=== PATIENT | male | born 1945 | race Caucasian/White ===

== ENCOUNTER 2023-12-27 11:52 | Outpatient (REF) | payer MEDICARE, SELFPAY ==
--- NOTE | ~2023-12-27 | XR_ITS ---
EXAMINATION: BILATERAL KNEES CLINICAL INFORMATION: Bilateral knee pain without injury COMPARISON: None available. TECHNIQUE: 3 views each knee FINDINGS: Right: Tricompartmental degenerative changes are seen with severe narrowing of the patellofemoral compartment as well as the medial compartment. Osteophytes and sclerosis are present. A tiny joint effusion is present. Vascular calcifications are seen. No fractures or dislocations. Left: Tricompartmental degenerative changes are seen with severe narrowing of the patellofemoral compartment as well as the medial compartment. Lesser changes are seen in the lateral compartment. No effusion is present. Vascular calcifications are seen. No fractures or dislocations. XR/XR knee RT 3V IMPRESSION: Bilateral tricompartmental degenerative changes as described above.
--- NOTE | ~2023-12-27 | XR_ITS ---
EXAMINATION: BILATERAL KNEES CLINICAL INFORMATION: Bilateral knee pain without injury COMPARISON: None available. TECHNIQUE: 3 views each knee FINDINGS: Right: Tricompartmental degenerative changes are seen with severe narrowing of the patellofemoral compartment as well as the medial compartment. Osteophytes and sclerosis are present. A tiny joint effusion is present. Vascular calcifications are seen. No fractures or dislocations. Left: Tricompartmental degenerative changes are seen with severe narrowing of the patellofemoral compartment as well as the medial compartment. Lesser changes are seen in the lateral compartment. No effusion is present. Vascular calcifications are seen. No fractures or dislocations. XR/XR knee LT 3V IMPRESSION: Bilateral tricompartmental degenerative changes as described above.
[2023-12-27 13:43] LABS: Anion Gap 13 (12-20); Carbon Dioxide 24 mmol/L (22-29); Chloride 109 mmol/L (96-108); Potassium 5.4 mmol/L (3.3-5.1); Sodium 141 mmol/L (135-145)
== END 2023-12-27 11:53 | disposition home or self-care (01) ==
LOC: HO.XRAY 11:52
PROVIDERS: PCP Internal Medicine Medical Oncology; Visit Provider Internal Medicine Medical Oncology
DX: I12.9 Hypertensive chronic kidney disease with stage 1 through stage 4 chronic kidney disease, or unspecified chronic kidney disease (principal); N18.30 Chronic kidney disease, stage 3 unspecified; I49.1 Atrial premature depolarization; M25.561 Pain in right knee; M25.562 Pain in left knee
CPT/HCPCS: 36415; 73562; 80051

== ENCOUNTER 2024-01-23 09:58 | Outpatient (REF) | payer MEDICARE, SELFPAY ==
--- NOTE | ~2024-01-23 | XR_ITS ---
EXAMINATION: XR KNEE AP STANDING CLINICAL INFORMATION: Pain in the right knee COMPARISON: X-rays of the knees December 2023 TECHNIQUE: AP bilateral standing view of the knees was obtained. FINDINGS: Right knee limited AP upright: Genu varus. Medial compartment: Moderate to severe joint space narrowing marginal osteophytes indicative of moderate to severe osteoarthritis unchanged. Lateral compartment marginal osteophytes indicative of at least mild osteoarthritis. No change. Patellofemoral compartment cannot be assessed on AP projection. Arterial calcification noted. Left knee: Genu varus. Medial compartment: Moderate to severe joint space narrowing indicative of mild osteoarthritis unchanged. Lateral compartment small marginal osteophytes without joint space narrowing indicative of mild osteoarthritis. Cannot assess patellofemoral compartment on this AP projection. Surrounding bone and soft tissues unremarkable. XR/XR knee standing BI IMPRESSION: RIGHT KNEE: Advanced osteoarthritis unchanged. LEFT KNEE: Advanced osteoarthritis unchanged..
== END 2024-01-23 09:59 | disposition home or self-care (01) ==
LOC: HO.HOSX 09:58
PROVIDERS: Visit Provider Physician Assistant
DX: M17.0 Bilateral primary osteoarthritis of knee (principal)
CPT/HCPCS: 73565; 99202

== ENCOUNTER 2024-01-23 14:25 | Outpatient (AMB) | payer MEDICARE, SELFPAY ==
--- NOTE | 2024-01-23 14:34 | MHC.OFFVIS ---
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 Patient reports that his right knee is worse than the left knee. He expresses that his pain is worse on both knees. Patient has off and on pain for a couple years. Patient tried and failed 3 + months of Ibuprofen. Pain is worse when he is sleeping but the pain is only on the left knee, standing for a long time for both knees. 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 ? ? While in the office today, the patient reports his right knee is worse than his left knee but confirms pain bilaterally. He states this pain has been intermittent for a couple of years. He reports an increase in pain within the left knee when sleeping. However, he has an increase in pain bilaterally with long periods of standing. He confirms trial and failure of over three months of ibuprofen. ? [facility] Social History (Updated 01/23/24 @ 14:41 by Anna Day) Alcohol intake: never Patient Tobacco Use Status: Never used Tobacco Review of Systems Const All systems reviewed & are unremarkable except as noted in HPI and below Physical Exam Const General: cooperative and no acute distress Orientation/consciousness: patient oriented x3 Resp Effort & Inspection: normal respiratory effort and able to speak in complete sentences Cardio Peripheral pulses: Peripheral pulses 2+ throughout Skin General skin exam: no rashes or lesions noted Neuro General: patient oriented x3 Extrem Other: Bilateral knees: Normal to inspection. No ecchymosis, erythema, or joint effusion. No tenderness to palpation along the medial or lateral joint lines. Full knee extension and flexion. Creptius felt with ROM. NVI.? Assessment & Plan Assessment & Plan (1) Osteoarthritis of right knee: Code(s): M17.11 - Unilateral primary osteoarthritis, right knee Category: Medical (2) Osteoarthritis of left knee: Code(s): M17.12 - Unilateral primary osteoarthritis, left knee Category: Medical Plan Mr. Eckert is a 78-year-old male who presents in the office today, as a new patient, for an evaluation of bilateral knee pain. ? ? While in the office today, the patient reports his right knee is worse than his left knee but confirms pain bilaterally. He states this pain has been intermittent for a couple of years. He reports an increase in pain within the left knee when sleeping. However, he has an increase in pain bilaterally with long periods of standing. He confirms trial and failure of over three months of ibuprofen.? ? We discussed the roles of cortisone injections, gel injections, and surgical intervention. He has elected to deferral all options at this time. He will continue to take OTC ibuprofen or Tylenol as needed for pain. He will contact the office should he wish to follow-up at a later time. Follow-up will be PRN, or sooner if needed. ? ? X-rays of the bilateral knees which were obtained while in the office today and were reviewed by me, Christina Georges PA-C, revealed bilateral knee osteoarthrtis. ? ? X-rays of the bilateral knees, obtained on 12/27/2023, revealed: Right: Tricompartmental degenerative changes are seen with severe? narrowing of the patellofemoral compartment as well as the medial? compartment. Osteophytes and sclerosis are present. A tiny joint? effusion is present. Vascular calcifications are seen. No fractures or? dislocations.? Left: Tricompartmental degenerative changes are seen with severe? narrowing of the patellofemoral compartment as well as the medial? compartment. Lesser changes are seen in the lateral compartment. No? effusion is present. Vascular calcifications are seen. No fractures or? dislocations.? Orders: Orders XR knee standing BI 01/23/24 M25.561 - Pain in right knee, M25.562 - Pain in left knee Patient Instructions: Scribed by Juanita Saucedo, biomedical manager, for Christina Georges PA-C on 01/23/2024 at 2:32 pm, EST.? Coding Level of Care Code New Pt Level 4 (91337) Diagnoses Osteoarthritis of right knee M17.11 Osteoarthritis of left knee M17.12
== END 2024-01-23 15:02 | disposition home or self-care (01) ==
PROVIDERS: PCP Internal Medicine Medical Oncology; Visit Provider Physician Assistant
DX: M17.0 Bilateral primary osteoarthritis of knee (principal)
CPT/HCPCS: 99203

== ENCOUNTER 2025-05-13 16:59 | Outpatient (REF) | payer MEDICARE, SELFPAY ==
--- OUTSIDE RECORDS SUMMARY | 2018-09-04 03:00 | XMS_ITS | Continuity of Care Document ---
Author Organization [facility], [place] Address [address] [place] [phone] Phone Care Team Providers Care Distribution Engineering Technologist Name Role Phone Freddy OD, Rupert Unavailable Unavailable Allergies, Adverse Reactions, Alerts Substance Reaction Status Criticality No Known Allergies Active No Inform ation Medications Medication Instructions Dosage Effective Dates (start - stop) Status Comments latanoprost 0.005 % eye drops Instill 1 drop Q HS OU - Active dorzolamide 22.3 mg-timolol 6.8 mg/mL eye drops Instill 1 drop BID OU - Active tamsulosin 0.4 mg capsule take 1 capsule by oral route every day 1/2 hour following the same meal each day 0.4 MG - Active anagrelide 1 mg capsule take 1 capsule by oral route 2 times every day 1 MG - Active lisinopril 20 mg tablet take 1 tablet by oral route every day 20 MG - Active SIMVASTATIN (unknown strength) take 1 tablet by oral route every day in the evening Not Available - Active Actos 30 mg tablet take 1 tablet by oral route every day 30 MG - Active glyburide 2.5 mg tablet take 2 tablet by oral route 2 times every day before breakfast 5 MG - Active metformin 500 mg tablet take 1 tablet by oral route 2 times every day with morning and evening meals 500 MG - Active Procedures Procedure Date Prepay Extended Ophthalmoscopy [facility] (Screening/Wellness) 2018 EYE EXAM, NEW PATIENT Advance Directives Directive Yes / No Effective Date File Name No Information Encounters Encounter Description Practice Location Reason(s) For Visit Diagnoses Date Provider Providers Copied on Encounter [facility], [facility], [address], [place], [id number] , tel: [phone] [facility] white flashing lights (chief complaint) Notes (chief complaint) Other vitreous opacities, right eyeVitreous degeneration, right eyePresence of intraocular lensType 2 diabetes mellitus without complicationsPrimary open-angle glaucoma, bilateral, indeterminate stageLong term (current) use of oral hypoglycemic drugs 9 Freddy Garcian. [address] [place] [address], [id number] , . tel: [phone] Family History Family Member Type Diagnosis Age At Onset Paternal grandfather Problem (finding) hypertension Problem (finding) No family hist ory of Macular degeneration Problem (finding) No family hist ory of Diabetes mellitus Brother Problem (finding) glaucoma Brother Problem (finding) cataract Payers Payer name Insurance type Covered republican ID Authoriza tion(s) No Information Social History Type Description Quantity Date Captured Comments Alcohol Use Details Unknown Caffeine Use Details Unknown Tobacco Use Status Current non-smoker 19 Smoking Status Never smoker Non-Smoking Tobacco Use Details : No Details Available : No Details Available Sex Male Chief Complaint And Reason For Visit From encounter dated '09/04/2018 08:00'. white flashing lights (chief complaint). Description: The 73 Year old male presents for white flashing lights in the right eye. The onset was during the night. The symptom is frequent, about every 10-20 seconds. In addition, the condition is associated with one new floater this am. The patient denies loss of side vision. Notes (chief complaint). Description: [place] is visiting from [place]. Has history of Cataract Extraction OUabout 6 years ago. Is being treated for Glaucoma OU. Has Type 2 DM. Reason For Referral Reason For Referral No Information History Of Present Illness Encounter Date Complaint History Of Prese nt Illness Notes Pt is visiting david murphy [place]. Has history of Cataract Extraction OU about 6 years ago. Is being treated for Glaucoma OU. Has Type 2 DM. white flashing lights The 73 Yea r old male presents for white flashing lights in the right eye. The onset was during the night. The symptom is frequent, about every 10-20 seconds. In addition, the condition is associated with one new floater this am. The patient denies loss of side vision. Functional Status Date Functional Assessmen t No Information Instructions Date Instruction Additional Infor bela Impression/Plan Assessments Type Assessment Date assessment Other vitreous opacities, right eye assessment Vitreous degeneration, right eye assessment Presence of intraocular lens Aug assessment Type 2 diabetes mellitus without complications assessment Primary open-angle glaucoma, rupinder ateral, indeterminate stage assessment USP (current) use of oral hypoglycemic drugs Patient Care Teams Name Effective Dates (start - stop) Status Members No Information
--- OUTSIDE RECORDS SUMMARY | 2024-04-14 09:30 | XMS_ITS ---
Author Organization [facility] Address [address] [place] [address] Care Team Providers Care Vocational Rehab Consultant Name Role Phone Talib HERNANDEZ, Marcelino Primary Care Provider Unavailab Sejal Lipscomb Unavailable [phone] Mendez Blanchard [phone] Encounters Encounter Location Date Provider Diagnosis [address] [address] 04/14/2024 Mendez Blanchard Plan Of Treatment Next Appt Details Provider Name:Sejal Gil pacheco, 10/12/2025 11:00:00 AM, [address] [place] [address], [phone], Progress Notes * Tate ADAMS DDOB: [birth year] (79 yo M)Acc No.[id number]:04/14/2024 Progress Note Patient: Sherron MELINDACARLEYTate Provider: Monique Olivo DPM :1945 A ge:78 Y S ex:Male Date:04/14/2024 Address:[address] [place] [address] Pcp:Marcelino Mayers MD Subjective: * Chief Complaints: * * Medical History: Objective: * Vitals: Assessment: Plan: * Treatment: * Images: * The named appointment provid er may or may not be the originator of this progress note, and it is not deemed complete until electronically signed by the appointment provider. Sign off status: Pending * Provider: Monique Olivo DPM Date: 1 Generated for James sosa/Martin/Ascencion on: 07/13/2024 07:12 PM EST
--- OUTSIDE RECORDS SUMMARY | 2024-08-22 04:45 | XMS_ITS ---
Author Organization Marcelino Mayers III, MD Address [address] [place] [address] [place] [address] Care Team Providers Care Office Equipment Technician Name Role Phone Dr. Marcelino Mayers III Primary Care Provider Medications Medication SIG (Take, Route, Fr equency, Duration) Notes Start Date End Date Status Simvastatin 80 MG 1 tablet in the even ing Orally Once a day for 90 days 08/22/2024 Active Social History Sex Assigned At : Social History Observation Description Sex Assigned At Male Encounters Encounter Location Date Provider Diagnosis Marcelino Mayers III, MD [address] [place] [address] [place] [phone] 08/22/2024 Marcelino Mayers Plan Of Treatment Medication Medication Name Sig Start Date Stop Date Notes Simvastatin 80 MG 1 tablet in the even ing Orally Once a day for 90 days 08/22/2024 Next Appt Details Provider Name:Marcelino Mayers , 05/20/2025 01:15:00 PM, [address] [place] [address] [place], [address], Provider Name:Marcelino Mayers , 09/02/2025 10:30:00 AM, [address] [facility] [place], [address], Progress Notes * Tate ADAMS DDOB: [birth year] (79 yo M)Acc No.[id number]:08/22/2024 Patient: Tate SALCIDO :1945 A ge:79 Y S ex:Male Address:[address] [place] [phone] * Refills Start Simvastatin Tablet, 80 MG, Orally, 90 Tablet, 1 tablet in the evening, Once a day, 90 days, Refills=3 * true * Date: Generated for James sosa/Martin/Cliftonitting on: 07/13/2024 07:11 PM EST
--- OUTSIDE RECORDS SUMMARY | 2024-09-01 05:30 | XMS_ITS ---
Author Organization Marcelino Mayers III, MD Address [address] [place] [address] [address] [place] [address] Care Team Providers Care Solar Electric Practitioner Name Role Phone Dr. Marcelino Mayers III Primary Care Provider [phone] Allergies Allergen (clinical drug ingredient) Drug/Non Drug Allergy documented on EMR Reaction Allergy Type Onset Date Status No Known Drug Allergy Unknown Drug Allergy Active Results Component Value Reference Range Notes URINE DIP STICK Reviewed date:09/01/2024 10:48:47 AM Interpretation: Performing Lab: Notes/Report: SG 1.020 1.005 - 1.025 pH 5.0 5.0 - 9.0 MAICOL Negative Negative - NIT Negative Negative - PRO 100 Negative - Trace GLU Negative Negative - KET 5 Negative - UBG 0.2 0.1 - 1.8 MELITON 1 0.2 - 1.3 BLD Negative Negative - REASON FOR VISIT annual exam Medications Medication SIG (Take, Route, Frequency, Duration) Notes Start Date End Date Status glipiZIDE 10 MG 1 tablet 30 minutes before breakfast Orally Once a day Active Pioglitazone HCl 30 MG 1 tablet Orally O nce a day Active Brimonidine Tartrate 0.2 % INSTILL 1 RAJAT P INTO BOTH EYES TWICE A DAY Ophthalmic Active Vitamin D Active Simvastatin 80 MG 1 tablet in the even ing Orally Once a day Active Tamsulosin HCl 0.4 MG TAKE 2 CAPSULES BY MOUTH ONCE DAILY Active Dorzolamide HCl-Timolol Mal 22.3-6.8 MG/ML Ophthalmic Active metFORMIN HCl 1000 MG TAKE 1 TABLET BY M OUTH TWICE DAILY WITH MEALS FOR 90 DAYS Active Anagrelide HCl 1 MG TAKE 2 CAPSULES BY M OUTH ONCE DAILY Orally once daily Active Lisinopril 10 MG Take 1 tablet by delilah th once daily Active Social History Tobacco Use: Social History Observation Description Date Details (start date - stop date) Never Smoker NA - NA Sex Assigned At : Social History Observation Description Sex Assigned At Male Tobacco Control (Standard) Question Answer Notes Tobacco use: Nonsmoker Additional Findings: Tobacco non-user Aggressive nonsmoker AUDIT-C (Standard) Question Answer Notes Did you have a drink containing alcohol in the p ast year? 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 I have strongly encouraged him to lose weight aggressively. 09/01/2024 Essential thrombocytosis (ICD-10 - D47.3) His platelets are in the normal range and no change to the anagrelide dose was necessary today. He will continue on that medication without change. 09/01/2024 BPH (benign prostati c hyperplasia) (ICD-10 - N40.0) He has been rising from sleep once or twice a night to urinate. We have discussed lifestyle modifications he could make to reduce nocturia. 09/01/2024 Essential hypertension (ICD-10 - I10) His blood pressure has been fluctuating. His systolic blood pressure was 140 today. He has lost 3 pounds and will continue to do so. No change was made in his regimen. The pressure does not drop we may need to adjust his medications. 09/01/2024 DM w/o complication type II (ICD-10 - E11.9) His fasting glucose and hemoglobin A1c show good control of his diabetes. We will concentrate on weight loss and a healthy diet at this time. Plan Of Treatment Medication Medication Name Sig Start Date Stop Date Notes glipiZIDE 10 MG 1 tablet 30 minutes before breakfast Orally Once a day Pioglitazone HCl 30 MG 1 tablet Orally Once a day Brimonidine Tartrate 0.2 % INSTILL 1 RAJAT P INTO BOTH EYES TWICE A DAY Ophthalmic Vitamin D Simvastatin 80 MG 1 tablet in the even ing Orally Once a day Tamsulosin HCl 0.4 MG TAKE 2 CAPSULES BY MOUTH ONCE DAILY Dorzolamide HCl-Timolol Mal 22.3-6.8 MG/ML Ophthalmic metFORMIN HCl 1000 MG TAKE 1 TABLET BY M OUTH TWICE DAILY WITH MEALS FOR 90 DAYS Anagrelide HCl 1 MG TAKE 2 CAPSULES BY M OUTH ONCE DAILY Orally once daily Lisinopril 10 MG Take 1 tablet by delilah th once daily Pending Test Test Name Order Date PROFILE, FASTING (COMPREHENSIVE METABOLI C) 09/01/2024 PSA, TOTAL 09/01/2024 CBC w DIFF 09/01/2024 Lipid Panel 09/01/2024 Microalbumin, Random 09/01/2024 Hemoglobin A1c 09/01/2024 Next Appt Details Follow Up: 4 Months, Reason: ov review labs Provider Name:Marcelino Mayers , 05/20/2025 01:15:00 PM, [address] [place] [address] [address], [place], [address], Provider Name:Marcelino Mayers , 09/02/2025 10:30:00 AM, [address] [place] [address] [address], [place], [address], Progress Notes * Tate ADAMS DDOB: [birth year] (79 yo M)Acc No.[id number]:09/01/2024 Progress Notes Patient: Tate SALCIDO Ana Provider: Leif Mayers MD :1945 A ge:79 Y S ex:Male Date:09/01/2024 Address:[facility], [id number] Subjective: * Chief Complaints: * A nnual exam * HPI: D epression Screening: knees are terrible bone on n bone. PHQ-9 L ittle interest or pleasure in doing things?Not at all F eeling down, depressed, or hopeless N ot at all T rouble falling or staying asleep, or sleeping too much N ot at all F eeling tired or having little energy N ot at all P oor appetite or overeating N ot at all F eeling bad about yourself or that you are a failure, or have let yourself or your family down N ot at all T rouble concentrating on things, such as reading the newspaper or watching television N ot at all M oving or speaking so slowly that other people could have noticed; or the opposite, being so fidgety or restless that you have been moving around a lot more than usual N ot at all T houghts that you would be better off or of hurting yourself in some way N ot at all T otal Score 0 C OVID-19 Screening: Questions H ave you had any new onset fever, chills, cough, congestion, sore throat, shortness of breath, muscle aches? N o F all Risk Screening: Fall History H ave you had any falls with injury in the past year? N o H ave you had two or more falls in the past year? N o F all Risk Assessment: N o falls in the past year S WHITNEY Questions: SDOH Questions I n the past year have you been worried about losing your housing? N o I n the past year have you or any family members you live with been unable to get any of the following when it was really needed? Check all that apply: N one * : The patient, a 79-year-old male, has been experiencing issues with his knees, particularly his right knee, which makes a clicking sound with every step. He has been managing the pain with ibuprofen, usually at bedtime, and sometimes during the day. 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 He also has a history of diabetes and high cholesterol, but recent blood work shows that these conditions are well-controlled. The patient has also had cataract surgery in the past. He reports no chest pains, breathing difficulties, or swollen legs. He does report varying frequency of nocturnal urination, ranging from once to four times a night. Blood work that was done August 27, 2024 showed hemoglobin A1c 5.8 total cholesterol 167 triglycerides 89 HDL 43 LDL 86 ratio 3.9 glucose 119 BUN 36 creatinine 1.6 white count 7.19 hematocrit 35.7 platelets 331. * ROS: G eneral/Constitutional: pain o nly normal aches and pains. C hills d enies.?Fatigue a dmits. F ever d enies. E NT: Decreased hearing i n both ears. R espiratory: Cough d enies. C ardiovascular: Chest pain with exertion d enies. D yspnea on exertion?denies. S hortness of breath d enies. G astrointestinal: Constipation o ccasional. D ecreased appetite d enies. D iarrhea d enies. H eartburn d enies. N ausea d enies. R ectal bleeding d enies. V omiting d enies. H ematology: bruising d enies. p etechiae d enies. S wollen glands n one have been noted. G enitourinary: Frequent urination o nce a night. M usculoskeletal: Muscle aches d enies. P ainful joints d enies. S ciatica d enies. W eakness d enies. S kin: Itching d enies. R eugenia d enies. S kin lesion(s)?denies. N eurologic: Difficulty speaking d enies. D izziness d enies.?Headache d enies. L ow back pain d enies. P sychiatric: Depressed mood d enies. * Medical History: * Surgical History: c olonoscopy Dr. Sampson hyperplastic polyp, h/o tubular adenomata 04/2014Colonoscopy Dr. Hatch 08/2019Cataract surgery * Hospitalization/Major Diagno stic Procedure: f alse heart attack * Family History: F ather: 73 yrs, pneumonia, multiple myloma. M other: 35 yrs, breast cancer, diagnosed with Cancer. S pouse: alive 66 yrs. 1 brother(s) , 2 sister(s) . 1 son(s) , 1 daughter(s) - healthy. . A sister has breast cancer. * Social History: T obacco Use: T obacco Control (Standard) T obacco use: N onsmoker A dditional Findings: Tobacco non-user A ggressive nonsmoker D rugs/Alcohol: D rugs H ave you used drugs other than those for medical reasons in the past 12 months? N o D rug/Alcohol: A REANNA-C (Standard) D id you have a drink containing alcohol in the past year? N o P oints 0 I nterpretation N egative H e is to [place] and working and has no toxic exposures. He was born in [place], [place]. * Medications: T akingTamsulosin HCl 0.4 MG Capsule TAKE 2 CAPSULES BY MOUTH ONCE DAILY Dorzolamide HCl-Timolol Mal 22.3-6.8 MG/ML Solution Ophthalmic Brimonidine Tartrate 0.2 % Solution INSTILL 1 DROP INTO BOTH EYES TWICE A DAY Ophthalmic Vitamin D Lisinopril 10 MG Tablet Take 1 tablet by mouth once daily metFORMIN HCl 1000 MG Tablet TAKE 1 TABLET BY MOUTH TWICE DAILY WITH MEALS FOR 90 DAYS Pioglitazone HCl 30 MG Tablet 1 tablet Orally Once a day Anagrelide HCl 1 MG Capsule TAKE 2 CAPSULES BY MOUTH ONCE DAILY Orally once daily glipiZIDE 10 MG Tablet 1 tablet 30 minutes before breakfast Orally Once a day Simvastatin 80 MG Tablet 1 tablet in the evening Orally Once a day Medication List reviewed and reconciled with the patientTaking Tamsulosin HCl 0.4 MG Capsule TAKE 2 CAPSULES BY MOUTH ONCE DAILY Taking Dorzolamide HCl-Timolol Mal 22.3-6.8 MG/ML Solution Ophthalmic Taking Brimonidine Tartrate 0.2 % Solution INSTILL 1 DROP INTO BOTH EYES TWICE A DAY Ophthalmic Taking Vitamin D Taking Lisinopril 10 MG Tablet Take 1 tablet by mouth once daily Taking metFORMIN HCl 1000 MG Tablet TAKE 1 TABLET BY MOUTH TWICE DAILY WITH MEALS FOR 90 DAYS Taking Pioglitazone HCl 30 MG Tablet 1 tablet Orally Once a day Taking Anagrelide HCl 1 MG Capsule TAKE 2 CAPSULES BY MOUTH ONCE DAILY Orally once daily Taking glipiZIDE 10 MG Tablet 1 tablet 30 minutes before breakfast Orally Once a day Taking Simvastatin 80 MG Tablet 1 tablet in the evening Orally Once a day Medication List reviewed and reconciled with the patient * Allergies: N o Known Drug Allergyno[Allergies Verified] Objective: * Vitals: H t: 74, Wt:267, BMI:34.28, BP:138/68, HR:90, Temp:98.2, Wt-k.11. * Examination: G eneral Examination: GENERAL APPEARANCE: p leasant, well nourished, well developed, in no acute distress, calm and relaxed, obese, man. HEAD: a traumatic, normocephalic. EYES: e farhad, perrla, anicteric, conjugate. EARS: N ormal anatomy with hearing loss. NOSE: s eptum intact. ORAL CAVITY: n ormal, unremarkable. NECK/THYROID: n o jugular venous distention, no carotid bruit, thyroid normal. LYMPH NODES: n o enlarged lymph nodes,spleen normal. SKIN: n o suspicious lesions, anicteric. HEART: n o clicks, gallops, murmurs, or rubs, regular rhythm, S1, S2 normal, no s3, or vascular bruits. LUNGS: c lear to auscultation . BREASTS: no masses palpable bilaterally. ABDOMEN: b owel sounds normal, no ascites, no organomegaly, no mass, centripital obesity. RECTAL EXAM: n ot examined. MUSCULOSKELETAL: e xtremities unremarkable, no clubbing, cyanosis or edema. PERIPHERAL PULSES: n ormal. NEUROLOGIC: a lert and oriented, cranial nerves 2-12 grossly intact, deep tendon reflexes 2+ symmetrical, motor strength normal upper and lower extremities, sensory exam intact. PSYCH: a lert, oriented. Assessment: * Assessment: 1. E ssential thrombocytosis - D47.3 (Primary) N otes :His platelets are in the normal range and no change to the anagrelide dose was necessary today.? He will continue on that medication without change. 2 . H yperlipidemia - E78.5 N otes :His lipids are currently stable and no change in his regimen was necessary today. I have strongly encouraged him to lose weight aggressively. 3 . B PH (benign prostatic hyperplasia) - N40.0 N otes :He has been rising from sleep once or twice a night to urinate. We have discussed lifestyle modifications he could make to reduce nocturia. 4 . E ssential hypertension - I10 N otes :His blood pressure has been fluctuating. His systolic blood pressure was 140 today. He has lost 3 pounds and will continue to do so. No change was made in his regimen. The pressure does not drop we may need to adjust his medications. 5 . D M w/o complication type II - E11.9 N otes :His fasting glucose and hemoglobin A1c show good control of his diabetes. We will concentrate on weight loss and a healthy diet at this time. Plan: * Treatment: 2. H yperlipidemia Continue Lisinopril Tablet, 10 MG, Take 1 tablet by mouth once daily; C ontinue metFORMIN HCl Tablet, 1000 MG, TAKE 1 TABLET BY MOUTH TWICE DAILY WITH MEALS FOR 90 DAYS; C ontinue Dorzolamide HCl-Timolol Mal Solution, 22.3-6.8 MG/ML, Ophthalmic; C ontinue Brimonidine Tartrate Solution, 0.2 %, INSTILL 1 DROP INTO BOTH EYES TWICE A DAY, Ophthalmic; C ontinue Vitamin D. L AB: PROFILE, FASTING (COMPREHENSIVE METABOLIC) L AB: PSA, TOTAL L AB: CBC w DIFF L AB: Lipid Panel L AB: Microalbumin, Random L AB: Hemoglobin A1c 3. B PH (benign prostatic hyperplasia) L AB: PROFILE, FASTING (COMPREHENSIVE METABOLIC) L AB: PSA, TOTAL L AB: CBC w DIFF L AB: Lipid Panel L AB: Microalbumin, Random L AB: Hemoglobin A1c 4. E ssential hypertension L AB: PROFILE, FASTING (COMPREHENSIVE METABOLIC) L AB: PSA, TOTAL L AB: CBC w DIFF L AB: Lipid Panel L AB: Microalbumin, Random L AB: Hemoglobin A1c 5. D M w/o complication type II L AB: PROFILE, FASTING (COMPREHENSIVE METABOLIC) L AB: PSA, TOTAL L AB: CBC w DIFF L AB: Lipid Panel L AB: Microalbumin, Random L AB: Hemoglobin A1c 6. O thers Continue Simvastatin Tablet, 80 MG, 1 tablet in the evening, Orally, Once a day; C ontinue glipiZIDE Tablet, 10 MG, 1 tablet 30 minutes before breakfast, Orally, Once a day; C ontinue Pioglitazone HCl Tablet, 30 MG, 1 tablet, Orally, Once a day; C ontinue Anagrelide HCl Capsule, 1 MG, TAKE 2 CAPSULES BY MOUTH ONCE DAILY, Orally, once daily; C ontinue Tamsulosin HCl Capsule, 0.4 MG, TAKE 2 CAPSULES BY MOUTH ONCE DAILY. * Labs: * L ab: URINE DIP STICK (Collection Date & Time - 09/01/2024) Value Reference Range S G 1.020 1.005 - 1.025 * p H 5.0 5.0 - 9.0 * L EU Negative Negative - * N IT Negative Negative - * P RO 100 Negative - Trace * G GONZALO Negative Negative - * K ET 5 Negative - * U BG 0.2 0.1 - 1.8 * B IL 1 0.2 - 1.3 * B LD Negative Negative - * Procedure Codes: 8 1002 URINE-NO MICRO * Preventive Medicine: Counseling: C are goal follow-up plan: Counseling for abnormal BMI given Y es Above Normal BMI Follow-up D ietary management education, guidance, and counseling, Dietary needs education, Exercise promotion: strength training, Exercise promotion: stretching, Feeding regime, Giving encouragement to exercise, Lifestyle education regarding diet, Nutrition / feeding management, Nutrition therapy, Prescribed activity/exercise education, Prescribed diet education, Prescribed dietary intake, Special diet education, Weight monitoring , Intervention, Order not done: Medical or Other reason not done DM Care Plan: P atient Lifestyle Goals P atient wants to be able to manage diabetes without too much effort. T reatment Goals B lood Sugars less than < 115, HbA1C < 7.0. B arriers n o barriers. S elf-Managment Goals W ork on weight loss, with a goal of losing 1 lb per week. * Follow Up: 4 Months (Reason: ov review labs) * Images: * Sign off status: Completed true * Provider: Leif Mayers MD Date: 0 09/01/2024 Generated for James sosa/Martin/Ascencion on: 07/13/2024 07:11 PM EST History and Physical Notes * HPI (History of Present Illness) Category Sub-Category Detail Notes Depression Screening PHQ-9 Little inte rest or pleasure in doing things: Not at all Feeling down, depressed, or hopeless: No t at all Trouble falling or staying asleep, or sl eeping too much: Not at all Feeling tired or having little energy: N ot at all Poor appetite or overeating: Not at all Feeling bad about yourself o r that you are a failure, or have let yourself or your family down: Not at all Trouble concentrating on thi ngs, such as reading the newspaper or watching television: Not at all Moving or speaking so slowly that other people could have noticed; or the opposite, being so fidgety or restless that you have been moving around a lot more than usual: Not at all Thoughts that you would be b dorene off or of hurting yourself in some way: Not at all Total Score: 0 Fall Risk Screening Fall History Have you had any falls with injury in the past year?: No Have you had two or more falls in the year?: No Fall Risk Assessment:: No falls in the year COVID-19 Screening Questions Have you had any new onset fever, chills, cough, congestion, sore throat, shortness of breath, muscle aches?: No SDOH Questions SDOH Questions In the past year have you been worried about losing your housing?: No In the past year have you or any family members you live with been unable to get any of the following when it was really needed? Check all that apply:: None Examination Category Sub-Category Detail Notes General Examination GENERAL APPEARANCE: pleasant , well nourished, well developed, in no acute distress, calm and relaxed, obese, man HEAD: atraumatic, normocep halic EYES: eomi, perrla, anicte vianney, conjugate EARS: Normal anatomy with hearing loss NOSE: septum intact NECK/THYROID: no jugular venous di stention, no carotid bruit, thyroid normal HEART: no clicks, gallops, murmurs, or rubs, regular rhythm, S1, S2 normal, no s3, or vascular bruits LUNGS: clear to auscultatio n ABDOMEN: bowel sounds normal, no ascites, no organomegaly, no mass, centripital obesity NEUROLOGIC: alert and oriented, cranial nerves 2-12 grossly intact, deep tendon reflexes 2+ symmetrical, motor strength normal upper and lower extremities, sensory exam intact SKIN: no suspicious lesion s, anicteric PERIPHERAL PULSES: normal BREASTS: no masses palpable b ilaterally MUSCULOSKELETAL: extremities unremark able, no clubbing, cyanosis or edema LYMPH NODES: no enlarged lymph no adam,spleen normal RECTAL EXAM: not examined PSYCH: alert, oriented ORAL CAVITY: normal, unremarkable
--- OUTSIDE RECORDS SUMMARY | 2024-09-11 10:08 | XMS_ITS ---
Author Organization Marcelino Mayers III, MD Address [address] [place] [address] [place] [address] Care Team Providers Care Rn On Site Name Role Phone Dr. Marcelino Mayers III Primary Care Provider REASON FOR VISIT Refills Medications Medication SIG (Take, Route, Fr equency, Duration) Notes Start Date End Date Status glipiZIDE 10 MG 1 tablet 30 minutes before breakfast Orally Once a day for 90 days Ac tive Social History Sex Assigned At : Social History Observation Description Sex Assigned At Male Encounters Encounter Location Date Provider Diagnosis Marcelino Mayers III, MD [address] [place] [address] [place] [address] 09/11/2024 Marcelino Mayers Plan Of Treatment Medication Medication Name Sig Start Date Stop Date Notes glipiZIDE 10 MG 1 tablet 30 minutes before breakfast Orally Once a day for 90 days Next Appt Details Provider Name:Marcelino Mayers , 05/20/2025 01:15:00 PM, [address] [place] [address] [place], [address], Provider Name:Marcelino Mayers , 09/02/2025 10:30:00 AM, [address] [place] [address] [place], [address], Progress Notes * Tate ADAMS DDOB: [birth year] (79 yo M)Acc No.[id number]:09/11/2024 Patient: Tate SALCIDO :1945 A ge:79 Y S ex:Male Address:[address] [place] [phone] * Refills Refill glipiZIDE Tablet, 10 MG, Orally, 90, 1 tablet 30 minutes before breakfast, Once a day, 90 days, Refills=3 * true * Date: Generated for James sosa/Martin/Darcysmitting on: 07/13/2024 07:12 PM EST
--- OUTSIDE RECORDS SUMMARY | 2024-09-18 10:06 | XMS_ITS ---
Author Organization Marcelino Mayers III, MD Address [address] [place] [address] [place] [address] Care Team Providers Care Grocery Packer Name Role Phone Dr. Marcelino Mayers III Primary Care Provider REASON FOR VISIT Refills Medications Medication SIG (Take, Route, Fr equency, Duration) Notes Start Date End Date Status Tamsulosin HCl 0.4 MG TAKE 2 CAPSULES BY MOUTH ONCE DAILY Orally Once a day for 90 days Active Social History Sex Assigned At : Social History Observation Description Sex Assigned At Male Encounters Encounter Location Date Provider Diagnosis Marcelino Mayers III, MD [address] [place] [address] [place] [address] 09/18/2024 Marcelino Mayers Plan Of Treatment Medication Medication Name Sig Start Date Stop Date Notes Tamsulosin HCl 0.4 MG TAKE 2 CAPSULES BY MOUTH ONCE DAILY Orally Once a day for 90 days Next Appt Details Provider Name:Marcelino Mayers , 05/20/2025 01:15:00 PM, [address] [place] [address] [place], [address], Provider Name:Marcelino Mayers , 09/02/2025 10:30:00 AM, [address] [place] [address] [place], [address], Progress Notes * Tate ADAMS DDOB: [birth year] (79 yo M)Acc No.[id number]:09/18/2024 Patient: Tate SALCIDO :1945 A ge:79 Y S ex:Male Address:[address] [place] [phone] * Refills Refill Tamsulosin HCl Capsule, 0.4 MG, Orally, 180, TAKE 2 CAPSULES BY MOUTH ONCE DAILY, Once a day, 90 days, Refills=3 * true * Date: Generated for James sosa/Martin/Cliftonitting on: 07/13/2024 07:09 PM EST
--- OUTSIDE RECORDS SUMMARY | 2024-10-03 04:30 | XMS_ITS ---
Author Organization [facility] Address [address] [place] [address] Care Team Providers Care Clerical Proofreader Name Role Phone Marcelino Mayers MD Primary Care Provider Unavailab Sejal Lipscomb Unavailable [phone] Kota Gonzalez Unavailable [phone] Medications Medication SIG (Take, Route, Frequency, Duration) Notes Start Date End Date Status Simvastatin 80 MG 1 tablet in the evening Orally Once a day; Duration: 30 day(s) Active Lisinopril 10 MG 1 tablet Orally Once a day; Duration: 30 day(s) Active Extra Depth Diabetic Shoes with 3 Pair Custom heat-molded multi-density innersoles for 1 year Dx: 09/29/2020 Not-Taking Ciclopirox Olamine 0.77 % 1 application to affected area Externally Twice a day to effected areas on feet; Duration: 30 days 04/20/2021 Not-Taking Tamsulosin HCl 0.4 MG 1 capsule Orally Once a day; Duration: 30 day(s) Active Dorzolamide-Timolol Drops Active glyBURIDE 5 MG 1 tablet with breakfast or the first main meal of the day Orally Once a day; Duration: 30 day(s) Not-Taking Pioglitazone HCl 30 MG 1 tablet Orally Once a day; Duration: 30 day(s) Active Metformin & Diet Manage Prod Two times daily 1030MG Active Anagrelide HCl 1 MG 1 capsule Orally Twice a day; Duration: 30 day(s) Active Vitamin D3 Active Brimonidine Tartrate Active Ciclopirox Olamine 0.77 % 1 application to affected area Externally Twice a day to effected areas on feet; Duration: 30 days Not-Taking glipiZIDE Active Latanoprost 0.005 % 1 drop into affected eye in the evening Ophthalmic Once a day Not-Taking Rocklatan Active Social History Tobacco Use: Social History Observation Description Date Details (start date - stop date) Never Smoker NA - NA Tobacco Use/Smoking Question Answer Notes Are you a: nonsmoker Additional Findings: Tobacco Non-User Current no n-smoker Alcohol Screen Question Answer Notes Did you have a drink containing alcohol in the p ast year? Yes Points 0 Interpretation Negative Tobacco use other than smoking: Question Answer Notes Are you an other tobacco user? No Encounters Encounter Location Date Provider Diagnosis [facility] [address] [address] 10/03/2024 Kota Gonzalez Plan Of Treatment Next Appt Details Provider Name:Sejal Cordero tara, 10/12/2025 11:00:00 AM, [address] [place] [address], [id number], Progress Notes * Tate ADAMS DDOB: [birth year] (79 yo M)Acc No.[id number]:10/03/2024 Progress Notes Patient: Tate SALCIDO D Provider: Jose De Jesus Gonzalez DPM :1945 A ge:79 Y S ex:Male Date:10/03/2024 Address:[address] [place], [place] [id number] Pcp:Marcelino Mayers MD Subjective: * Chief Complaints: * * ROS: G eneral/Constitutional: Nausea d enies. V omiting d enies. H cande Thirst d enies. L oss appetite d enies. C hills d enies. F atigue d enies.?Fever d enies. N ight Sweats d enies. U nexplained weight loss d enies. U nexplained weight gain d enies. H EENTM: Dentures d enies. D izziness d enies. G lasses/contacts a dmits. R etinopathy d enies. B lurred/double vision d enies. T MJ?denies. D ischarge/drainage d enies. I mplants d enies. S ore throat d enies. D ental implants d enies. H letitia of hearing d enies. D ifficulty chewing/swallowing/speaking d enies. N ose bleeds d enies. S ore mouth d enies. ? R espiratory: On Oxygen d enies. P neumonia/pleurisy d enies.?Bronchitis d enies. E mphysema d enies. C oughing d enies. C ough blood?denies. S hortness of breath d enies. W heezing d enies. C ardiovascular: Pacemaker d enies. M SCHOOL ADMISSIONS REPRESENTATIVE d enies. W PW d enies. C HF d enies. H eart attack d enies. S eptal defect d enies. R apid beat d enies. C hest pain d enies. A trial Fib. d enies. M urmur/Palpitations d enies. G astrointestinal: Hemorrhoids d enies. S tomach/Abdominal pain d enies. D ark blood stool d enies. I rritable bowel d enies. C onstipation d enies. D iarrhea d enies. H ematology: Swelling d enies. C lots d enies. V aricose Veins d enies. B ruising d enies. B leeding problem d enies. G enitourinary: Blood urine d enies. F requent/Painfu/urination/bladder control d enies. K idney stones d enies. I nfection (UTI) d enies. N ephropathy d enies. s ex trans dis (STD) d enies. P rostate a dmits. M usculoskeletal: Hammertoes d enies. B unions d enies. B ack Pain d enies. M uscle Cramps/ Resting d enies. M uscle cramps / walking d enies.?Generalized aches and pains d enies. W eakness d enies. I nteg.: Ramírez d enies. S cars d enies. C orns/calluses?denies. I ngrown nails d enies. P ainful nails d enies. O pen Sores d enies. R ashes d enies. N eurologic: Difficulty sleeping d enies. B rain disorder d enies. N umbness d enies. B alance trouble d enies. C onfusion d enies. F ainting/blackouts d enies. T ingling d enies. T remors d enies. * Medical History: C ataracts, Diabetic, Glaucoma, High blood pressure, Measles, Chicken pox, Cholesterol, Thrombocytosis, Covid-19, Mumps. * Family History: M other: , diagnosed with Other malignant neoplasm of unspecified site. F ather: , diagnosed with Other malignant neoplasm of unspecified site. * Social History: T obacco Use: T obacco Use/Smoking A re you a: n onsmoker A dditional Findings: Tobacco Non-User C urrent non-smoker Tobacco use other than smoking A re you an other tobacco user? N o D rugs/Alcohol: D rugs H ave you used drugs other than those for medical reasons in the past 12 months? N o Alcohol Screen D id you have a drink containing alcohol in the past year? Y es P oints 0 I nterpretation N egative M iscellaneous: C affeine: yes, 2-3 cups per day. Children: yes. Exercise: no. Marital status: . 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 * Medications: T dale Matiastan , Taking Vitamin D3 , Taking Brimonidine Tartrate , Taking glipiZIDE , Taking Dorzolamide-Timolol , Notes to Pharmacist: Drops, Taking Pioglitazone HCl 30 MG Tablet 1 tablet Orally Once a day , Taking Metformin & Diet Manage Prod , Notes to Pharmacist: Two times daily 1030MG, Taking Anagrelide HCl 1 MG Capsule 1 capsule Orally Twice a day , Taking Tamsulosin HCl 0.4 MG Capsule 1 capsule Orally Once a day , Taking Simvastatin 80 MG Tablet 1 tablet in the evening Orally Once a day , Taking Lisinopril 10 MG Tablet 1 tablet Orally Once a day , Not-Taking/PRN Ciclopirox Olamine 0.77 % Cream 1 application to affected area Externally Twice a day to effected areas on feet , Not-Taking/PRN Latanoprost 0.005 % Solution 1 drop into affected eye in the evening Ophthalmic Once a day , Not-Taking/PRN glyBURIDE 5 MG Tablet 1 tablet with breakfast or the first main meal of the day Orally Once a day , Not-Taking/PRN Extra Depth Diabetic Shoes with 3 Pair Custom heat-molded multi-density innersoles for 1 year Dx: , Not-Taking/PRN Ciclopirox Olamine 0.77 % Cream 1 application to affected area Externally Twice a day to effected areas on feet Objective: * Vitals: Assessment: Plan: * Treatment: * Images: * The named appointment provid er may or may not be the originator of this progress note, and it is not deemed complete until electronically signed by the appointment provider. Sign off status: Pending * Provider: Jose De Jesus Gonzalez DPM Date: 0 10/03/2024 Generated for James sosa/Martin/Ascencion on: 07/13/2024 01:31 PM EST
--- OUTSIDE RECORDS SUMMARY | 2024-11-12 06:00 | XMS_ITS ---
Author Organization Marcelino Mayers III, MD Address [address] [place] [address] [place] [address] Care Team Providers Care Nutrition Services Associate Name Role Phone Dr. Marcelino Mayers III Primary Care Provider REASON FOR VISIT Needs referral Social History Sex Assigned At : Social History Observation Description Sex Assigned At Male Encounters Encounter Location Date Provider Diagnosis Marcelino Mayers III, MD [address] [place] [address] [place] [address] 11/12/2024 Marcelino Mayers Plan Of Treatment Next Appt Details Provider Name:Marcelino Mayers , 05/20/2025 01:15:00 PM, [address] [place] [address] [place], [address], Provider Name:Marcelino Mayers , 09/02/2025 10:30:00 AM, [address] [place] [address] [place], [address], Progress Notes * Tate ADAMS DDOB: [birth year] (79 yo M)Acc No.[id number]:11/12/2024 Patient: Sherron Tate RICHARD :1945 A ge:79 Y S ex:Male Address:[address] [place] [address] * true * Date: Generated for James sosa/Martin/[employer]encion on: 07/13/2024 07:10 PM EST
--- OUTSIDE RECORDS SUMMARY | 2024-12-30 05:00 | XMS_ITS ---
Author Organization Marcelino Mayers III, MD Address [address] [place] [address] [address] [place] [address] Care Team Providers Care Job Training Specialist Name Role Phone Dr. Marcelino Mayers III Primary Care Provider Allergies Allergen (clinical drug ingredient) Drug/Non Drug Allergy documented on EMR Reaction Allergy Type Onset Date Status No Known Drug Allergy Unknown Drug Allergy Active Reason For Referral Reason Evaluate and Treat Chronic Kidney Disease Stage 3 Type 2 Diabetes Diagnosis 1 Type 2 diabetes dayami itus without complication, without long-term current use of insulin (E11.9) Diagnosis 2 Chronic kidney disea se, stage 3 unspecified (N18.30) Referral Organization Marcelino Mayers III, MD Referring Provider First Name Marcelino Referring Provider Last Name Talib Referring Provider Speciality Internal M edicine Referred Provider HERB MENDEZ Referred Provider Specialty Nephrology General Notes DTori 01/01/2025 01:08:57 PM > Referral and progress note faxed. Referral Priority Routine Referral Appointment Date 01/08/2025 REASON FOR VISIT Diabetes, Hypertension, Hyperlipidemiia, Benign prostaatic hypertrophy, Essential thrombocytosis, Hearing loss, Obesity, CKD Medications Medication SIG (Take, Route, Frequency, Duration) Notes Start Date End Date Status Dorzolamide HCl-Timolol Mal 22.3-6.8 MG/ML Ophthalmic Active Ibuprofen Active Acetaminophen Active Brimonidine Tartrate 0.2 % INSTILL 1 RAJAT P INTO BOTH EYES TWICE A DAY Ophthalmic Active Vitamin D Active metFORMIN HCl 1000 MG TAKE 1 TABLET BY M OUTH TWICE DAILY WITH MEALS FOR 90 DAYS Active Anagrelide HCl 1 MG TAKE 2 CAPSULES BY M OUTH ONCE DAILY Orally once daily Active Lisinopril 10 MG Take 1 tablet by delilah th once daily Active Simvastatin 80 MG 1 tablet in the even ing Orally Once a day Active Pioglitazone HCl 30 MG 1 tablet Orally O nce a day Active Tamsulosin HCl 0.4 MG TAKE 2 CAPSULES BY MOUTH ONCE DAILY Orally Once a day Active glipiZIDE 10 MG 1 tablet 30 minutes before breakfast Orally Once a day Active Social History Tobacco Use: Social History Observation Description Date Details (start date - stop date) Never Smoker NA - NA Sex Assigned At : Social History Observation Description Sex Assigned At Male Tobacco Control (Standard) Question Answer Notes Tobacco use: Nonsmoker Additional Findings: Tobacco non-user Aggressive nonsmoker Vital Signs Temperature 98.2 degrees Fahrenheit 12/31/19 25 Blood pressure systolic 116 mm Hg 12/31/19 25 Blood pressure diastolic 61 mm Hg 025 Heart Rate 84 /min 12/30/2024 Height 74 in 12/30/2024 Weight 259 lbs 12/30/2024 BMI 33.25 kg/m2 12/30/2024 Encounters Encounter Location Date Provider Diagnosis Marcelino Mayers III, MD [address] [place] [address] [place] [address] 12/30/2024 Marcelino Mayers Hyperlipidemia E78.5 ; Type 2 diabetes mellitus without complication, without long-term current use of insulin E11.9 ; Obesity (BMI 30.0-34.9) E66.9 ; Glaucoma H40.9 ; Essential hypertension I10 ; BPH (benign prostatic hyperplasia) N40.0 ; Essential thrombocytosis D47.3 ; Sensorineural hearing loss (SNHL) of both ears H90.3 and Chronic kidney disease, stage 3 unspecified N18.30 Assessments Encounter Date Diagnosis (ICD Code) Assessment Notes Treat ment Notes Treatment Clinical Notes 12/30/2024 Hyperlipidemia (ICD-10 - E78.5) His lipids are currently stable and no change in his regimen was necessary today. I have strongly encouraged him to lose weight aggressively. 12/30/2024 Type 2 diabetes mellitus without complication, without long-term current use of insulin (ICD-10 - E11.9) His hemoglobin A1c was 6.4 and he has lost weight. We made a plan to continue weight loss. No change in his medications was made. 12/30/2024 Obesity (BMI 30.0-34.9) (ICD-10 - E66.9) He has lost 8 pounds through diet and exercise. We discussed diet and nutrition today. We made a plan continue his weight loss at a rate of 1 pound per week. 12/30/2024 Glaucoma (ICD-10 - H40.9) He is compliant with using his ocular medication. He will see the coal tower operator regularly. 12/30/2024 Essential hypertension (ICD-10 - I10) His blood pressure has been controlled. His systolic blood pressure wasnormal today. He has lost 8 pounds and will continue to do so. No change was made in his regimen. The pressure does not drop we may need to adjust his medications. 12/30/2024 BPH (benign prostatic hyperplasia) (ICD-10 - N40.0) He has been rising from sleep once or twice a night to urinate. We have discussed lifestyle modifications he could make to reduce nocturia. 12/30/2024 Essential thrombocytosis (ICD-10 - D47.3) His platelets are in the normal range and no change to the anagrelide dose was necessary today. He will continue on that medication without change. 12/30/2024 Sensorineural hearing loss (SNHL) of both ears (ICD-10 - H90.3) He is currently being fitted for hearing aids. 12/30/2024 Chronic kidney disease, stage 3 unspecified (ICD-10 - N18.30) His renal function remains abnormal likely due to the diabetes. Will be monitored closely. He was encouraged to remain hydrated during the warm summer weather. Plan Of Treatment Medication Medication Name Sig Start Date Stop Date Notes Dorzolamide HCl-Timolol Mal 22.3-6.8 MG/ML Ophthalmic Ibuprofen Acetaminophen Brimonidine Tartrate 0.2 % INSTILL 1 RAJAT P INTO BOTH EYES TWICE A DAY Ophthalmic Vitamin D metFORMIN HCl 1000 MG TAKE 1 TABLET BY M OUTH TWICE DAILY WITH MEALS FOR 90 DAYS Anagrelide HCl 1 MG TAKE 2 CAPSULES BY M OUTH ONCE DAILY Orally once daily Lisinopril 10 MG Take 1 tablet by delilah once daily Simvastatin 80 MG 1 tablet in the even ing Orally Once a day Pioglitazone HCl 30 MG 1 tablet Orally Once a day Tamsulosin HCl 0.4 MG TAKE 2 CAPSULES BY MOUTH ONCE DAILY Orally Once a day glipiZIDE 10 MG 1 tablet 30 minutes before breakfast Orally Once a day Pending Test Test Name Order Date PROFILE, FASTING (COMPREHENSIVE METABOLI C) 12/30/2024 CBC w DIFF 12/30/2024 Lipid Panel 12/30/2024 Referrals Referral Date Details 12/30/2024 12/30/2024, Evaluate and Treat Chronic Kidney Disease Stage 3 Type 2 Diabetes, HERB MENDEZ Next Appt Details Follow Up: 3 Months, Reason: OV Provider Name:Marcelino Mayers , 05/20/2025 01:15:00 PM, [address] [place] [address] [address], [place], [address], Provider Name:Marcelino Mayers , 09/02/2025 10:30:00 AM, [address] [place] [address] [address], [place], [address], Progress Notes * ANGIE Tate DDOB: [birth year] (79 yo M)Acc No.[id number]:12/30/2024 Progress Notes Patient: Tate SALCIDO Provider: Leif Mayers MD :1945 A ge:79 Y S ex:Male Date:12/30/2024 Address:[address] [place] [id number] Subjective: * Chief Complaints: * D iabetesHypertensionHyperlipidemiiaBenign prostaatic hypertrophyEssential thrombocytosisHearing lossObesityCKD * HPI: C OVID-19 Screening: He returns for medical management. He continues his efforts at weight loss. His platelet count is well controlled. He has been compliant with all of his medications. Comprehensive blood work was available and was reviewed with him. He denies any chest pain or shortness of breath. He has had no neurological symptoms. He is up-to-date with ophthalmology. Blood work done December 24, 2024 showed PSA 0.87 glucose 111 BUN 43 creatinine 1.7 A1c 6.4 white count 8.7 hematocrit 35.7 platelets 346 total cholesterol 165 triglycerides 192 HDL 45 LDL 82. Questions H ave you had any new onset fever, chills, cough, congestion, sore throat, shortness of breath, muscle aches? N o * ROS: G eneral/Constitutional: pain o nly [...] dditional Findings: Tobacco non-user A ggressive nonsmoker Yael rodriguez is to [employer] and working and has no toxic exposures. He was born in [place], [place]. * Medications: T akingIbuprofen Acetaminophen Simvastatin 80 MG Tablet 1 tablet in the evening Orally Once a day Pioglitazone HCl 30 MG Tablet 1 tablet Orally Once a day Anagrelide HCl 1 MG Capsule TAKE 2 CAPSULES BY MOUTH ONCE DAILY Orally once daily Lisinopril 10 MG Tablet Take 1 tablet by mouth once daily metFORMIN HCl 1000 MG Tablet TAKE 1 TABLET BY MOUTH TWICE DAILY WITH MEALS FOR 90 DAYS Dorzolamide HCl-Timolol Mal 22.3-6.8 MG/ML Solution Ophthalmic Brimonidine Tartrate 0.2 % Solution INSTILL 1 DROP INTO BOTH EYES TWICE A DAY Ophthalmic Vitamin D glipiZIDE 10 MG Tablet 1 tablet 30 minutes before breakfast Orally Once a day Tamsulosin HCl 0.4 MG Capsule TAKE 2 CAPSULES BY MOUTH ONCE DAILY Orally Once a day Medication List reviewed and reconciled with the patientTaking Ibuprofen Taking Acetaminophen Taking Simvastatin 80 MG Tablet 1 tablet in the evening Orally Once a day Taking Pioglitazone HCl 30 MG Tablet 1 tablet Orally Once a day Taking Anagrelide HCl 1 MG Capsule TAKE 2 CAPSULES BY MOUTH ONCE DAILY Orally once daily Taking Lisinopril 10 MG Tablet Take 1 tablet by mouth once daily Taking metFORMIN HCl 1000 MG Tablet TAKE 1 TABLET BY MOUTH TWICE DAILY WITH MEALS FOR 90 DAYS Taking Dorzolamide HCl-Timolol Mal 22.3-6.8 MG/ML Solution Ophthalmic Taking Brimonidine Tartrate 0.2 % Solution INSTILL 1 DROP INTO BOTH EYES TWICE A DAY Ophthalmic Taking Vitamin D Taking glipiZIDE 10 MG Tablet 1 tablet 30 minutes before breakfast Orally Once a day Taking Tamsulosin HCl 0.4 MG Capsule TAKE 2 CAPSULES BY MOUTH ONCE DAILY Orally Once a day Medication List reviewed and reconciled with the patient * Allergies: N o Known Drug Allergyno[Allergies Verified] Objective: * Vitals: H t: 74, Wt:259, BMI:33.25, BP:116/61, HR:84, Temp:98.2, Wt-k.48. * Examination: G eneral Examination: GENERAL APPEARANCE: p leasant, well nourished, well developed, in no acute distress, calm and relaxed, obese, man. HEAD: a traumatic, normocephalic. EYES: e farhad, perrla, anicteric, conjugate. EARS: n ormal. NOSE: s eptum intact. ORAL CAVITY: n [...] a lert, oriented. Assessment: * Assessment: 1. T ype 2 diabetes mellitus without complication, without long-term current use of insulin - E11.9 (Primary) N otes :His hemoglobin A1c was 6.4 and he has lost weight. We made a plan to continue weight loss. No change in his medications was made. 2 . H yperlipidemia - E78.5 N otes :His lipids are currently stable and no change in his regimen was necessary today. I have strongly encouraged him to lose weight aggressively. 3 . O besity (BMI 30.0-34.9) - E66.9 N otes :He has lost 8 pounds through diet and exercise. We discussed diet and nutrition today. We made a plan continue his weight loss at a rate of 1 pound per week. 4 . G laucoma - H40.9 N otes :He is compliant with using his ocular medication. He will see the coal tower operator regularly. 5 . E ssential hypertension - I10 N otes :His blood pressure has been controlled. His systolic blood pressure wasnormal today. He has lost 8 pounds and will continue to do so. No change was made in his regimen. The pressure does not drop we may need to adjust his medications. 6 . B PH (benign prostatic hyperplasia) - N40.0 N otes :He has been rising from sleep once or twice a night to urinate. We have discussed lifestyle modifications he could make to reduce nocturia. 7 . E ssential thrombocytosis - D47.3 N otes :His platelets are in the normal range and no change to the anagrelide dose was necessary today. He will continue on that medication without change. 8 . S ensorineural hearing loss (SNHL) of both ears - H90.3 N otes :He is currently being fitted for hearing aids. 9 . C hronic kidney disease, stage 3 unspecified - N18.30 N otes :His renal function remains abnormal likely due to the diabetes. Will be monitored closely. He was encouraged to remain hydrated during the warm summer weather. Plan: * Treatment: 2. H yperlipidemia Continue [...] AB: PROFILE, FASTING (COMPREHENSIVE METABOLIC) L AB: CBC w DIFF L AB: Lipid Panel 3. O besity (BMI 30.0-34.9) L AB: PROFILE, FASTING (COMPREHENSIVE METABOLIC) L AB: CBC w DIFF L AB: Lipid Panel 4. C hronic kidney disease, stage 3 unspecified Referral To:[facility] MENDEZ Nephrology Reason:Evaluate and Treat Chronic Kidney Disease Stage 3 Type 2 Diabetes 5. O thers Continue Tamsulosin HCl Capsule, 0.4 MG, TAKE 2 CAPSULES BY MOUTH ONCE DAILY, Orally, Once a day;?Continue glipiZIDE Tablet, 10 MG, 1 tablet 30 minutes before breakfast, Orally, Once a day; C ontinue Simvastatin Tablet, 80 MG, 1 tablet in the evening, Orally, Once a day; C ontinue Pioglitazone HCl Tablet, 30 MG, 1 tablet, Orally, Once a day; C ontinue Anagrelide HCl Capsule, 1 MG, TAKE 2 CAPSULES BY MOUTH ONCE DAILY, Orally, once daily. * Procedure Codes: * Preventive Medicine: Counseling: C are goal [...] without too much effort. T reatment Goals H bA1C < 7.0, Blood Sugars less than < 115. B arriers n o barriers. S elf-Managment Goals W ork on weight loss, with a goal of losing 1 lb per week. * Follow Up: 3 Months (Reason: OV) * Images: * Sign off status: Completed true * Provider: Leif Mayers MD Date: 0 12/30/2024 Generated for James sosa/Martin/[employer] on: 07/13/2024 07:09 PM EST History and Physical Notes * HPI (History of Present Illness) Category Sub-Category Detail Notes COVID-19 Screening Questions Have you had any new onset fever, chills, cough, congestion, sore throat, shortness of breath, muscle aches?: No Examination Category Sub-Category Detail Notes General Examination GENERAL APPEARANCE: pleasant , well nourished, well developed, in no acute distress, calm and relaxed, obese, man HEAD: atraumatic, normocep halic EYES: eomi, perrla, anicte vianney, conjugate EARS: normal NOSE: septum intact NECK/THYROID: no jugular venous [...] PSYCH: alert, oriented ORAL CAVITY: normal, unremarkable Consultation Request Notes Referral Date Referring Provider Referred Provider Not es 12/30/2024 Marcelino Mayers BALAJI Evaluate an d Treat Chronic Kidney Disease Stage 3 Type 2 Diabetes
--- OUTSIDE RECORDS SUMMARY | 2025-04-01 05:45 | XMS_ITS ---
Author Organization Marcelino Mayers III, MD Address [address] [place] [address] [address] [place] [address] Care Team Providers Care Government Employee Name Role Phone Dr. Marcelino Mayers III Primary Care Provider [phone] Allergies Allergen (clinical drug ingredient) Drug/Non Drug Allergy documented on EMR Reaction Allergy Type Onset Date Status No Known Drug Allergy Unknown Drug Allergy Active REASON FOR VISIT Hypertension, Diabetes, Hyperlipidemia, Benign prostatic hypertrophy, Essential thrombocytosis, Hearing loss, Obesity, Chronic kidney disease Medications Medication SIG (Take, Route, Frequency, Duration) Notes Start Date End Date Status Dorzolamide HCl-Timolol Mal 22.3-6.8 MG/ML Ophthalmic Active metFORMIN HCl 1000 MG TAKE 1 TABLET BY M OUTH TWICE DAILY WITH MEALS FOR 90 DAYS Active Ibuprofen Active Vitamin D Active Brimonidine Tartrate 0.2 % INSTILL 1 RAJAT P INTO BOTH EYES TWICE A DAY Ophthalmic Active Anagrelide HCl 1 MG TAKE 2 CAPSULES BY M OUTH ONCE DAILY Orally once daily Active Pioglitazone HCl 30 MG 1 tablet Orally O nce a day Active Simvastatin 80 MG 1 tablet in the even ing Orally Once a day Active glipiZIDE 10 MG 1 tablet 30 minutes before breakfast Orally Once a day Active Lisinopril 10 MG Take 1 tablet by delilah th once daily Active Tamsulosin HCl 0.4 MG TAKE 2 CAPSULES BY MOUTH ONCE DAILY Orally Once a day Active Acetaminophen Active Social History Tobacco Use: Social History Observation Description Date Details (start date - stop date) Never Smoker NA - NA Sex Assigned At : Social History Observation Description Sex Assigned At Male Tobacco Control (Standard) Question Answer Notes Tobacco use: Nonsmoker Additional Findings: Tobacco non-user Aggressive nonsmoker Vital Signs Temperature 98.1 degrees Fahrenheit 04/01/20 25 Blood pressure systolic 140 mm Hg 04/01/20 25 Blood pressure diastolic 77 mm Hg 025 Heart Rate 83 /min 04/01/2025 Height 74 in 04/01/2025 Weight 264 lbs 04/01/2025 BMI 33.89 kg/m2 04/01/2025 Encounters Encounter Location Date Provider Diagnosis Marcelino Mayers III, MD [address] [place] [address] [place] [address] 04/01/2025 Marcelino Mayers Hyperlipidemia E78.5 ; Essential thrombocytosis D47.3 ; Type 2 diabetes mellitus without complication, without long-term current use of insulin E11.9 ; Obesity (BMI 30.0-34.9) E66.9 ; Essential hypertension I10 ; BPH (benign prostatic hyperplasia) N40.0 and Chronic kidney disease, stage 3 unspecified N18.30 Assessments Encounter Date Diagnosis (ICD Code) Assessment Notes Treat ment Notes Treatment Clinical Notes 04/01/2025 Hyperlipidemia (ICD-10 - E78.5) His lipids are currently stable and no change in his regimen was necessary today. I have strongly encouraged him to lose weight aggressively. 04/01/2025 Essential thrombocytosis (ICD-10 - D47.3) His platelets are in the normal range and no change to the anagrelide dose was necessary today. He will continue on that medication without change. 04/01/2025 Type 2 diabetes mellitus without complication, without long-term current use of insulin (ICD-10 - E11.9) His hemoglobin A1c was 6.4 and he has lost weight. We made a plan to continue weight loss. No change in his medications was made.Comprehensive blood work will another A1c was ordered prior to his next visit 04/01/2025 Obesity (BMI 30.0-34.9) (ICD-10 - E66.9) He has gained 5 pounds. We discussed diet and nutrition today. We made a plan continue his weight loss at a rate of 1 pound per week. 04/01/2025 Essential hypertension (ICD-10 - I10) His blood pressure has been controlled. His systolic blood pressure has risen slightly with the 5 pound weight gain. He has lost 8 pounds and will continue to do so. No change was made in his regimen. The pressure does not drop we may need to adjust his medications. 04/01/2025 BPH (benign prostati c hyperplasia) (ICD-10 - N40.0) He has been rising from sleep once or twice a night to urinate. We have discussed lifestyle modifications he could make to reduce nocturia. 04/01/2025 Chronic kidney disease, stage 3 unspecified (ICD-10 - N18.30) His renal function remains slightly abnormal likely due to the diabetes. Will be monitored closely. He was encouraged to remain hydrated during the warm summer weather. Plan Of Treatment Medication Medication Name Sig Start Date Stop Date Notes Dorzolamide HCl-Timolol Mal 22.3-6.8 MG/ML Ophthalmic metFORMIN HCl 1000 MG TAKE 1 TABLET BY M OUTH TWICE DAILY WITH MEALS FOR 90 DAYS Ibuprofen Vitamin D Brimonidine Tartrate 0.2 % INSTILL 1 RAJAT P INTO BOTH EYES TWICE A DAY Ophthalmic Anagrelide HCl 1 MG TAKE 2 CAPSULES BY M OUTH ONCE DAILY Orally once daily Pioglitazone HCl 30 MG 1 tablet Orally Once a day Simvastatin 80 MG 1 tablet in the even ing Orally Once a day glipiZIDE 10 MG 1 tablet 30 minutes before breakfast Orally Once a day Lisinopril 10 MG Take 1 tablet by delilah th once daily Tamsulosin HCl 0.4 MG TAKE 2 CAPSULES BY MOUTH ONCE DAILY Orally Once a day Acetaminophen Pending Test Test Name Order Date PSA, TOTAL 04/01/2025 Hemoglobin A1c 04/01/2025 Next Appt Details Follow Up: 1 Week, Reason: T elehealth Provider Name:Marcelino Mayers , 05/20/2025 01:15:00 PM, [address] [facility] [address], [place], [address], Provider Name:Marceilno Mayers , 09/02/2025 10:30:00 AM, [address] [facility] [place], [address], Progress Notes * Tate ADAMS DDOB: [birth year] (79 yo M)Acc No.[id number]:04/01/2025 Progress Notes Patient: Tate SALCIDO Provider: Leif Mayers MD :1945 A ge:79 Y S ex:Male Date:04/01/2025 Address:[address] [place] [address] [address] [facility], [id number] Subjective: * Chief Complaints: * H ypertensionDiabetesHyperlipidemiaBenign prostatic hypertrophyEssential thrombocytosisHearing lossObesityChronic kidney disease * HPI: C OVID-19 Screening: Yael rodriguez returns for medical management of his metabolic syndrome and essential thrombocytosis.? He has been compliant with all his medications and is continuing his oversewed weight loss. He has had a burning sensation under his sternum often when he lies down she is not related to exertion.He does have multiple risk factors for ischemic heart disease. For the next few days he is going to use a liquid antacid when he experiences us to see if it can be abolished that way. If not he will have a stress test. His platelet count is adequately controlled and the remainder of his blood work shows no worsening.Blood work done March 25, 2025 showed total cholesterol 154 triglycerides 155 HDL 45 LDL 78 ratio 3.4 white count 7.15 hematocrit 36.7 platelets 292 glucose 117 BUN 34 creatinine 1.5. Questions H ave you had any new onset fever, chills, cough, congestion, sore throat, shortness of breath, muscle aches? N o * ROS: G eneral/Constitutional: pain I ntermittent physician related substernal burning.?Chills d enies. F atigue a dmits. F ever d enies. E NT: Decreased hearing i n both ears. R espiratory: Cough d enies. C ardiovascular: Chest pain with exertion d enies. D yspnea on exertion?denies. S hortness of breath d enies. G astrointestinal: Constipation o ccasional. D ecreased appetite d enies. D iarrhea d enies. H eartburn o ccasional. N ausea d enies. R ectal bleeding d enies. V omiting d enies. H ematology: bruising d enies. p etechiae d enies. S wollen glands n one have been noted. G enitourinary: Frequent urination d enies. M usculoskeletal: Muscle aches d enies. P [...] dditional Findings: Tobacco non-user A ggressive nonsmoker H e is to [employer] and working and has no toxic exposures. He was born in [place], [place]. * Medications: T akingTamsulosin HCl 0.4 MG Capsule TAKE 2 CAPSULES BY MOUTH ONCE DAILY Orally Once a day glipiZIDE 10 MG Tablet 1 tablet 30 [...] EYES TWICE A DAY Ophthalmic Vitamin D Ibuprofen Acetaminophen Medication List reviewed and reconciled with the patientTaking Tamsulosin HCl 0.4 MG Capsule TAKE 2 CAPSULES BY MOUTH ONCE DAILY Orally Once a day Taking glipiZIDE 10 MG Tablet 1 tablet [...] A DAY Ophthalmic Taking Vitamin D Taking Ibuprofen Taking Acetaminophen Medication List reviewed and reconciled with the patient * Allergies: N o Known Drug Allergyno[Allergies Verified] Objective: * Vitals: H t: 74, Wt:264, BMI:33.89, BP:140/77, HR:83, Temp:98.1, Wt-k.75. * Examination: G eneral Examination: GENERAL APPEARANCE: p leasant, well nourished, well developed, in no acute distress, calm and relaxed: obese: man. HEAD: a traumatic, normocephalic. EYES: e [...] sounds normal, no ascites, no organomegaly, no mass: centripital obesity. RECTAL EXAM: n ot examined. [...] him to lose weight aggressively. 3 . T ype 2 diabetes mellitus without complication, without long-term current use of insulin - E11.9 N otes :His hemoglobin A1c was 6.4 and he has lost weight. We made a plan to continue weight loss. No change in his medications was made.Comprehensive blood work will another A1c was ordered prior to his next visit 4 . O besity (BMI 30.0-34.9) - E66.9 N otes :He has gained 5 pounds. We discussed diet and nutrition today. We made a plan continue his weight loss at a rate of 1 pound per week. 5 . E ssential hypertension - I10 N otes :His blood pressure has been controlled. His systolic blood pressure has risen slightly with the 5 pound weight gain. Yael rodriguez has lost 8 pounds and will continue [...] could make to reduce nocturia. 7 . C hronic kidney disease, stage 3 unspecified - N18.30 N otes :His renal function remains slightly abnormal likely due to the diabetes. Will be monitored closely. He was encouraged to remain hydrated during the warm summer weather. Plan: * Treatment: 2. T ype 2 diabetes mellitus without complication, without long-term current use of insulin Continue Ibuprofen; C ontinue Acetaminophen. L AB: PSA, TOTAL L AB: Hemoglobin A1c 3. B PH (benign prostatic hyperplasia) L AB: PSA, TOTAL 4. O thers Continue Tamsulosin HCl Capsule, 0.4 [...] 1 lb per week. * Follow Up: 1 Week (Reason: Telehealth) * Images: * Sign off status: Completed true * Provider: Leif Mayers MD Date: 0 04/01/2025 Generated for James sosa/Martin/Cliftonitting on: 07/13/2024 07:10 PM EST History and Physical Notes * HPI (History of Present Illness) Category Sub-Category Detail Notes COVID-19 Screening Questions Have you had any new onset fever, chills, cough, congestion, sore throat, shortness of breath, muscle aches?: No Examination Category Sub-Category Detail Notes General Examination GENERAL APPEARANCE: pleasant , well nourished, well developed, in no acute distress, calm and relaxed: obese: man HEAD: atraumatic, normocep halic EYES: eomi, perrla, anicte vianney, conjugate EARS: normal NOSE: septum intact NECK/THYROID: no jugular venous di stention, no carotid bruit, thyroid normal HEART: no clicks, gallops, murmurs, or rubs, regular rhythm, S1, S2 normal, no s3, or vascular bruits LUNGS: clear to auscultatio n ABDOMEN: bowel sounds normal, no ascites, no organomegaly, no mass: centripital obesity NEUROLOGIC: alert and oriented, cranial [...]
--- OUTSIDE RECORDS SUMMARY | 2025-04-08 09:15 | XMS_ITS ---
Author Organization Marcelino Mayers III, MD Address [address] [place] [address] [address] [place] [address] Care Team Providers Care Title I Coordinator Name Role Phone Dr. Marcelino Mayers III Primary Care Provider Allergies Allergen (clinical drug ingredient) Drug/Non Drug Allergy documented on EMR Reaction Allergy Type Onset Date Status No Known Drug Allergy Unknown Drug Allergy Active REASON FOR VISIT Substernal burning discomfort, Hypertension, Diabetes, Chronic kidney disease Medications Medication SIG (Take, Route, Frequency, Duration) Notes Start Date End Date Status Brimonidine Tartrate 0.2 % INSTILL 1 RAJAT P INTO BOTH EYES TWICE A DAY Ophthalmic Active Vitamin D Active Ibuprofen Active Acetaminophen Active Dorzolamide HCl-Timolol Mal 22.3-6.8 MG/ML Ophthalmic Active Anagrelide HCl 1 MG TAKE 2 CAPSULES BY M OUTH ONCE DAILY Orally once daily Active Lisinopril 10 MG Take 1 tablet by delilah th once daily Active metFORMIN HCl 1000 MG TAKE 1 TABLET BY M OUTH TWICE DAILY WITH MEALS FOR 90 DAYS Active Simvastatin 80 MG 1 tablet in [...] Nonsmoker Additional Findings: Tobacco non-user Aggressive nonsmoker Encounters Encounter Location Date Provider Diagnosis Marcelino Mayers III, MD [address] [place] [address] [place] [address] 04/08/2025 Marcelino Mayers Hyperlipidemia E78.5 ; Chest discomfort R07.89 ; Type 2 diabetes mellitus without complication, without long-term current use of insulin E11.9 ; Essential hypertension I10 ; BPH (benign prostatic hyperplasia) N40.0 ; Essential thrombocytosis D47.3 ; Sensorineural hearing loss (SNHL) of both ears H90.3 ; Obesity (BMI 30.0-34.9) E66.9 and Chronic kidney disease, stage 3 unspecified N18.30 Assessments Encounter Date Diagnosis (ICD Code) Assessment Notes Treat ment Notes Treatment Clinical Notes 04/08/2025 Hyperlipidemia (ICD-10 - E78.5) His lipids are currently stable and no change in his regimen was necessary today. I have strongly encouraged him to lose weight aggressively. 04/08/2025 Chest discomfort (ICD-10 - R07.89) This symptom appears to be esophageal reflux referring cardiac ischemia. Another followup visit by [facility] and 14 days was arranged to confirm this. 04/08/2025 Type 2 diabetes mellitus without complication, without long-term current use of insulin (ICD-10 - E11.9) His hemoglobin A1c was 6.4 and he has lost weight. We made a plan to continue weight loss. No change in his medications was made.Comprehensive blood work will another A1c was ordered prior to his next visit 04/08/2025 Essential hypertension (ICD-10 - I10) His blood pressure has been controlled. His systolic blood pressure has risen slightly with the 5 pound weight gain. He has lost 8 pounds and will continue to do so. No change was made in his regimen. The pressure does not drop we may need to adjust his medications. 04/08/2025 BPH (benign prostati c hyperplasia) (ICD-10 - N40.0) He has been rising from sleep once or twice a night to urinate. We have discussed lifestyle modifications he could make to reduce nocturia. 04/08/2025 Essential thrombocytosis (ICD-10 - D47.3) His platelets are in the normal range and no change to the anagrelide dose was necessary today. He will continue on that medication without change. 04/08/2025 Sensorineural hearin g loss (SNHL) of both ears (ICD-10 - H90.3) He is currently being fitted for hearing aids. 04/08/2025 Obesity (BMI 30.0-34.9) (ICD-10 - E66.9) He has gained 5 pounds. We discussed diet and nutrition today. We made a plan continue his weight loss at a rate of 1 pound per week. 04/08/2025 Chronic kidney disease, stage 3 unspecified (ICD-10 - N18.30) His renal function remains slightly abnormal likely due to the diabetes. Will be monitored closely. He was encouraged to remain hydrated during the warm summer weather. Plan Of Treatment Medication Medication Name Sig Start Date Stop Date Notes Brimonidine Tartrate 0.2 % INSTILL 1 RAJAT P INTO BOTH EYES TWICE A DAY Ophthalmic Vitamin D Ibuprofen Acetaminophen Dorzolamide HCl-Timolol Mal 22.3-6.8 MG/ML Ophthalmic Anagrelide HCl 1 MG TAKE 2 CAPSULES BY M OUTH ONCE DAILY Orally once daily Lisinopril 10 MG Take 1 tablet by delilah th once daily metFORMIN HCl 1000 MG TAKE 1 TABLET BY M OUTH TWICE DAILY WITH MEALS FOR 90 DAYS Simvastatin 80 MG 1 tablet in the even ing Orally Once a day Pioglitazone HCl 30 MG 1 tablet Orally Once a day Tamsulosin HCl 0.4 MG TAKE 2 CAPSULES BY MOUTH ONCE DAILY Orally Once a day glipiZIDE 10 MG 1 tablet 30 minutes before breakfast Orally Once a day Next Appt Details Follow Up: 2.5 Weeks, Reason : Telehealth Provider Name:Marcelino Mayers , 05/20/2025 01:15:00 PM, [address] [place] [address] [address], [place], [address], Provider Name:Marcelino Mayers , 09/02/2025 10:30:00 AM, [address] [place] [address] [address], [place], [address], Progress Notes * Tate ADAMS DDOB: [birth year] (79 yo M)Acc No.[id number]:04/08/2025 Patient: Tate SALCIDO Provider: Leif Mayers MD :1945 A ge:79 Y S ex:Male Date:04/08/2025 Address:[address] [place], [id number] Subjective: * Chief Complaints: * S ubsternal burning discomfortHypertensionDiabetesChronic kidney disease * HPI: * : On his laast visit he informed me of a recent series of substernal burning discomfort he has noted mostly at rest, not clearly related to exertion or eating. He has a history of esophageal reflux symptoms. We decided to aggressively treat this with a liquid antacid in followup today.? He reports that the burning discomfort is abolished with the use of Mylanta. A followup visit 14 days to confirm this was made. It is likely this is more esophageal same cardiac. Telehealth L ocation of provider rendering services: { ...} [address] [place] [address] [place] [id number] L ocation of patient: sarah aguilar listed in demographics for today's visit P atient identification confirmed using: MITESH Carlson ame T elehealth method: T elephone only. Patient not visible to care provider. C onsent: P atient verbally consented to treatment, Patient verbally consented to billing insurance company, Patient informed of any privacy concerns related to method of visit T otal time spent with patient (mins) 1 5 * ROS: G eneral/Constitutional: pain S ubsternal burning discomfort recently. C hills?denies. F atigue a dmits. F ever d enies. E NT: Decreased hearing d enies. R espiratory: Cough d enies. C ardiovascular: Chest pain with exertion d enies. D yspnea on exertion?denies. S hortness of breath d enies. G astrointestinal: Constipation d enies. D ecreased appetite d enies.?Diarrhea d enies. H eartburn , occasional. N ausea d enies. R ectal bleeding [...] no toxic exposures. He was born in [place], [place]. * Medications: T akingTamsulosin HCl 0.4 [...] Known Drug Allergyno[Allergies Verified] Objective: * Vitals: Assessment: * Assessment: 1. C hest discomfort - R07.89 (Primary) N otes :This symptom appears to be esophageal reflux referring cardiac ischemia. Another followup visit by [facility] and 14 days was arranged to confirm this. 2 . H yperlipidemia - E78.5 N [...] prior to his next visit 4 . E ssential hypertension - I10 N otes :His blood pressure has been controlled. His systolic blood pressure has risen slightly with the 5 pound weight gain. He has lost 8 pounds and will continue to do so. No change was made in his regimen. The pressure does not drop we may need to adjust his medications. 5 . B PH (benign prostatic hyperplasia) - N40.0 N otes :He has been rising from sleep once or twice a night to urinate. We have discussed lifestyle modifications he could make to reduce nocturia. 6 . E ssential thrombocytosis - D47.3 N otes :His platelets are in the normal range and no change to the anagrelide dose was necessary today. He will continue on that medication without change. 7 . S ensorineural hearing loss (SNHL) of both ears - H90.3 N otes :He is currently being fitted for hearing aids. 8 . O besity (BMI 30.0-34.9) - E66.9 N otes :He has gained 5 pounds. We discussed diet and nutrition today. We made a plan continue his weight loss at a rate of 1 pound per week. 9 . C hronic kidney disease, stage 3 unspecified - N18.30 N otes :His renal function remains slightly abnormal likely due to the diabetes. Will be monitored closely. He was encouraged to remain hydrated during the warm summer weather. Plan: * Treatment: 2. T ype 2 diabetes mellitus without complication, without long-term current use of insulin Continue Ibuprofen; C ontinue Acetaminophen. 3. O thers Continue Tamsulosin HCl Capsule, 0.4 [...] DAILY, Orally, once daily. * Procedure Codes: 9 8012 SYNCH AUDIO-ONLY EST SF 10 * Preventive Medicine: Counseling: C are goal follow-up plan: Counseling for abnormal BMI given Y es Above Normal BMI Follow-up D ietary management education, guidance, and counseling, Dietary needs education DM Care Plan: P atient Lifestyle Goals P atient wants to be able to manage diabetes without too much effort. T reatment Goals B lood Sugars less than < 115, HbA1C < 7.0. B arriers n o barriers. S elf-Managment Goals W ork on weight loss, with a goal of losing 1 lb per week. * Follow Up: 2 .5 Weeks (Reason: Telehealth) * Images: * Sign off status: Completed true * Provider: Leif Mayers MD Date: 1 Generated for James sosa/Martin/Ascencion on: 07/13/2024 07:13 PM EST History and Physical Notes * HPI (History of Present Illness) Category Sub-Category Detail Notes Telehealth Location of [facility] rendering services:: {...} [address] [place] [address] [place] [address] Location of patient:: address listed in demographics for today's visit Patient identification confirmed using:: Name, Telehealth method:: Telephone only. Adi ent not visible to care provider. Consent:: Patient verbally c onsented to treatment, Patient verbally consented to billing insurance company, Patient informed of any privacy concerns related to method of visit Total time spent with patient (mins): 15
--- OUTSIDE RECORDS SUMMARY | 2025-04-27 05:45 | XMS_ITS ---
Author Organization Marcelino Mayers III, MD Address [address] [place] [address] [address] [place] [address] Care Team Providers Care Operator Maintainer Name Role Phone Dr. Marcelino Mayers III Primary Care Provider [phone] Allergies Allergen (clinical drug ingredient) Drug/Non Drug Allergy documented on EMR Reaction Allergy Type Onset Date Status No Known Drug Allergy Unknown Drug Allergy Active REASON FOR VISIT Diabetes mellitus, Diabetic nephropathy, Hypertension, Hyperlipidemia, Essential thrombocytosis, Hearing loss, Obesity Medications Medication SIG (Take, Route, Frequency, Duration) Notes Start Date End Date Status Acetaminophen Active Vitamin D Active Jardiance 10 MG TAKE 1 TABLET ONCE D AILY Oral Active Brimonidine Tartrate 0.2 % INSTILL 1 RAJAT P INTO BOTH EYES TWICE A DAY Ophthalmic Active Dorzolamide HCl-Timolol Mal 22.3-6.8 MG/ML Ophthalmic Active Lisinopril 10 MG Take 1 tablet by delilah th once daily Active metFORMIN HCl 1000 MG TAKE 1 TABLET BY M OUTH TWICE DAILY WITH MEALS FOR 90 DAYS Active Pioglitazone HCl 30 MG 1 tablet Orally O nce a day Active Anagrelide HCl 1 MG TAKE 2 CAPSULES BY M OUTH ONCE DAILY Orally once daily Active Tamsulosin HCl 0.4 MG TAKE 2 CAPSULES BY MOUTH ONCE DAILY Orally Once a day Active glipiZIDE 10 MG 1 tablet 30 minutes before breakfast Orally Once a day Active Simvastatin 80 MG 1 tablet in the even ing Orally Once a day Active Social History Tobacco Use: Social History Observation Description Date Details (start date - stop date) Never Smoker NA - NA Sex Assigned At : Social History Observation Description Sex Assigned At Male Tobacco Control (Standard) Question Answer Notes Tobacco use: Nonsmoker Additional Findings: Tobacco non-user Aggressive nonsmoker Vital Signs Temperature 97.5 degrees Fahrenheit 04/27/20 25 Blood pressure systolic 130 mm Hg 04/27/20 25 Blood pressure diastolic 70 mm Hg 025 Heart Rate 77 /min 04/27/2025 Height 74 in 04/27/2025 Weight 259 lbs 04/27/2025 BMI 33.25 kg/m2 04/27/2025 Encounters Encounter Location Date Provider Diagnosis Marcelino Mayers III, MD [address] [place] [address] [place] [address] 04/27/2025 Marcelino Mayers Hyperlipidemia E78.5 ; Obesity (BMI 30.0-34.9) E66.9 ; Type 2 diabetes mellitus without complication, without long-term current use of insulin E11.9 and Essential thrombocytosis D47.3 Assessments Encounter Date Diagnosis (ICD Code) Assessment Notes Treat ment Notes Treatment Clinical Notes 04/27/2025 Hyperlipidemia (ICD-10 - E78.5) His lipids are currently stable and no change in his regimen was necessary today. I have strongly encouraged him to lose weight aggressively. 04/27/2025 Obesity (BMI 30.0-34.9) (ICD-10 - E66.9) We have discussed his diet and nutrition again. He will avoid oranges and bananas and tomatoes. He will try to lose weight at a rate of one half of a pound per week. 04/27/2025 Type 2 diabetes mellitus without complication, without long-term current use of insulin (ICD-10 - E11.9) His hemoglobin A1c was 6.4 and he has lost weight. We made a plan to continue weight loss. No change in his medications was made.Comprehensive blood work will another A1c was ordered prior to his next visit 04/27/2025 Essential thrombocytosis (ICD-10 - D47.3) His platelets are in the normal range and no change to the anagrelide dose was necessary today. He will continue on that medication without change. Plan Of Treatment Medication Medication Name Sig Start Date Stop Date Notes Acetaminophen Vitamin D Jardiance 10 MG TAKE 1 TABLET ONCE D AILY Oral Brimonidine Tartrate 0.2 % INSTILL 1 RAJAT P INTO BOTH EYES TWICE A DAY Ophthalmic Dorzolamide HCl-Timolol Mal 22.3-6.8 MG/ML Ophthalmic Lisinopril 10 MG Take 1 tablet by delilah th once daily metFORMIN HCl 1000 MG TAKE 1 TABLET BY M OUTH TWICE DAILY WITH MEALS FOR 90 DAYS Pioglitazone HCl 30 MG 1 tablet Orally Once a day Anagrelide HCl 1 MG TAKE 2 CAPSULES BY M OUTH ONCE DAILY Orally once daily Tamsulosin HCl 0.4 MG TAKE 2 CAPSULES BY MOUTH ONCE DAILY Orally Once a day glipiZIDE 10 MG 1 tablet 30 minutes before breakfast Orally Once a day Simvastatin 80 MG 1 tablet in the even ing Orally Once a day Pending Test Test Name Order Date PROFILE, FASTING (COMPREHENSIVE METABOLI C) 04/27/2025 PSA, TOTAL 04/27/2025 CBC w DIFF 04/27/2025 Lipid Panel 04/27/2025 Hemoglobin A1c 04/27/2025 Next Appt Details Follow Up: As Scheduled, Claudia son: Annual Exam Provider Name:Marcelino Mayers , 05/20/2025 01:15:00 PM, [address] [place] [address] [address], [place], [address], Provider Name:Marcelino Mayers , 09/02/2025 10:30:00 AM, [address] [place] [address] [address], [place], [address], Progress Notes * Tate ADAMS DDOB: [birth year] (79 yo M)Acc No.[id number]:04/27/2025 Progress Notes Patient: Sherron RICHARD Tate Perez Provider: Leif Mayers MD :1945 A ge:79 Y S ex:Male Date:04/27/2025 Address:[facility] [address] [facility] [id number] Subjective: * Chief Complaints: * D iabetes mellitusDiabetic nephropathyHypertensionHyperlipidemiaEssential thrombocytosisHearing lossObesity * HPI: C OVID-19 Screening: He has recently been to see 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 He was begun on jardiance which he is tolerating well. His blood pressure was stable today. He feels healthy and well. We discussed weight loss has some length. F ollow-up visit was arranged. Questions H ave you had any new [...] no toxic exposures. He was born in [place], [place]. * Medications: T akingTamsulosin HCl 0.4 [...] EYES TWICE A DAY Ophthalmic Vitamin D Acetaminophen Jardiance 10 MG Tablet TAKE 1 TABLET ONCE DAILY Oral Taking Tamsulosin HCl 0.4 MG Capsule TAKE [...] A DAY Ophthalmic Taking Vitamin D Taking Acetaminophen Taking Jardiance 10 MG Tablet TAKE 1 TABLET ONCE DAILY Oral DiscontinuedIbuprofen Medication List reviewed and reconciled with the patientDiscontinued Ibuprofen Medication List reviewed and reconciled with the patient * Allergies: N o Known Drug Allergyno[Allergies Verified] Objective: * Vitals: H t: 74, Wt:259, BMI:33.25, BP:130/70, HR:77, Temp:97.5, Wt-k.48. * Examination: G eneral Examination: GENERAL APPEARANCE: p jesus, well nourished, well developed, in no acute [...] a lert, oriented. Assessment: * Assessment: 1. O besity (BMI 30.0-34.9) - E66.9 (Primary) N otes :We have discussed his diet and nutrition again. He will avoid oranges and bananas and tomatoes. He will try to lose weight at a rate of one half of a pound per week. 2 . H yperlipidemia - E78.5 N [...] his next visit 4 . E ssential thrombocytosis - D47.3 N otes :His platelets are in the normal range and no change to the anagrelide dose was necessary today. He will continue on that medication without change. Plan: * Treatment: 2. H yperlipidemia Continue [...] TWICE A DAY, Ophthalmic; C ontinue Vitamin D; C ontinue Jardiance Tablet, 10 MG, TAKE 1 TABLET ONCE DAILY, Oral. L AB: PROFILE, FASTING (COMPREHENSIVE METABOLIC) L AB: PSA, TOTAL L AB: CBC w DIFF L AB: Lipid Panel L AB: Hemoglobin A1c 3. T ype 2 diabetes mellitus without complication, without long-term current use of insulin Continue Acetaminophen. L AB: PROFILE, FASTING (COMPREHENSIVE METABOLIC) L AB: PSA, TOTAL L AB: CBC w DIFF L AB: Lipid Panel L AB: Hemoglobin A1c 4. O thers Continue Tamsulosin HCl Capsule, [...] Goals B lood Sugars less than < 115.? B arriers n o barriers. S elf-Managment Goals W ork on weight loss, with a goal of losing 1 lb per week. * Follow Up: A s Scheduled (Reason: Annual Exam) * Images: * Sign off status: Completed true * Provider: Leif Mayers MD Date: Generated for Fabii ng/Martin/Darcysmitting on: 07/13/2024 07:08 PM EST History and Physical Notes * [...]
--- OUTSIDE RECORDS SUMMARY | 2025-05-13 08:30 | XMS_ITS ---
Author Organization Marcelino Mayers III, MD Address [address] [place] [address] [address] [place] [address] Care Team Providers Care Stock Clerk Name Role Phone Dr. Marcelino Mayers III Primary Care Provider [phone] Allergies Allergen (clinical drug ingredient) Drug/Non Drug Allergy documented on EMR Reaction Allergy Type Onset Date Status No Known Drug Allergy Unknown Drug Allergy Active REASON FOR VISIT Maceration of skin left foot third and fourth toes, Diabetes, Hypertension, Thrombocytosis, Benign prostatic hypertrophy, Obesity Medications Medication SIG (Take, Route, Frequency, Duration) Notes Start Date End Date Status Dorzolamide HCl-Timolol Mal 22.3-6.8 MG/ML Ophthalmic Active Brimonidine Tartrate 0.2 % INSTILL 1 RAJAT P INTO BOTH EYES TWICE A DAY Ophthalmic Active Lisinopril 10 MG Take 1 [...] tablet Orally O nce a day Active Mupirocin 2 % 1 application Differential Tester ally Twice a day for 5 days 05/13/2025 06/02/2025 Active Jardiance 10 MG TAKE 1 TABLET ONCE D AILY Oral Active Vitamin D Active Acetaminophen Active Social History Tobacco Use: Social History Observation Description Date Details (start date - stop date) Never Smoker NA - NA Sex Assigned At : Social History Observation Description Sex Assigned At Male Tobacco Control (Standard) Question Answer Notes Tobacco use: Nonsmoker Additional Findings: Tobacco non-user Aggressive nonsmoker Problems Problem Type SNOMED Code ICD Code Onset Dates Problem Status W/U Status Risk Notes Problem [id number] Type 2 diabetes mellitus with foot ulcer (E11.621) Active confirmed Problem 40687335261100795 Non-pressure chronic ulcer of other part of left foot limited to breakdown of skin (L97.521) Active confirmed The skin between the second and third and third and fourth left foot toes is soft and white and red and macerated but still intact. There is no smell. The remainder of the toes and skin of the foot is pink and warm. He is going to wash the area with soap and water and dry it well twice a day and apply mupirocine until he can get to the wound clinic at [facility] for definitive care. I will see him weekly along with them. Vital Signs Temperature 97.9 degrees Fahrenheit 05/13/20 25 Blood pressure systolic 149 mm Hg 05/13/20 25 Blood pressure diastolic 67 mm Hg 025 Heart Rate 56 /min 05/13/2025 Height 74 in 05/13/2025 Weight 261 lbs 05/13/2025 BMI 33.51 kg/m2 05/13/2025 Encounters Encounter Location Date Provider Diagnosis Marcelino Mayers III, MD [address] [place] [address] [place] [address] 05/13/2025 Marcelino Mayers Hyperlipidemia E78.5 ; Non-pressure chronic ulcer of other part of left foot limited to breakdown of skin L97.521 ; Essential hypertension I10 ; BPH (benign prostatic hyperplasia) N40.0 ; Essential thrombocytosis D47.3 ; Sensorineural hearing loss (SNHL) of both ears H90.3 ; Obesity (BMI 30.0-34.9) E66.9 and Type 2 diabetes mellitus without complication, without long-term current use of insulin E11.9 Assessments Encounter Date Diagnosis (ICD Code) Assessment Notes Treat ment Notes Treatment Clinical Notes 05/13/2025 Hyperlipidemia (ICD-10 - E78.5) His lipids are currently stable and no change in his regimen was necessary today. I have strongly encouraged him to lose weight aggressively. 05/13/2025 Non-pressure chronic ulcer of other part of left foot limited to breakdown of skin (ICD-10 - L97.521) The skin between the second and third and third and fourth left foot toes is soft and white and red and macerated but still intact. There is no smell. The remainder of the toes and skin of the foot is pink and warm. He is going to wash the area with soap and water and dry it well twice a day and apply mupirocine until he can get to the wound clinic at [facility] for definitive care. I will see him weekly along with them. 05/13/2025 Essential hypertension (ICD-10 - I10) His blood pressure has been controlled. His systolic blood pressure has risen slightly with the 5 pound weight gain. He has lost 8 pounds and will continue to do so. No change was made in his regimen. The pressure does not drop we may need to adjust his medications. 05/13/2025 BPH (benign prostati c hyperplasia) (ICD-10 - N40.0) He has been rising from sleep once or twice a night to urinate. We have discussed lifestyle modifications he could make to reduce nocturia. 05/13/2025 Essential thrombocytosis (ICD-10 - D47.3) His platelets are in the normal range and no change to the anagrelide dose was necessary today. He will continue on that medication without change. 05/13/2025 Sensorineural hearin g loss (SNHL) of both ears (ICD-10 - H90.3) He is currently being fitted for hearing aids. 05/13/2025 Obesity (BMI 30.0-34.9) (ICD-10 - E66.9) We have discussed his diet and nutrition again. He will avoid oranges and bananas and tomatoes. He will try to lose weight at a rate of one half of a pound per week. 05/13/2025 Type 2 diabetes mellitus without complication, without long-term current use of insulin (ICD-10 - E11.9) His hemoglobin A1c was 6.4 and he has lost weight. We made a plan to continue weight loss. No change in his medications was made.Comprehensive blood work will another A1c was ordered prior to his next visit Plan Of Treatment Medication Medication Name Sig Start Date Stop Date Notes Dorzolamide HCl-Timolol Mal 22.3-6.8 MG/ML Ophthalmic Brimonidine Tartrate 0.2 % INSTILL 1 RAJAT P INTO BOTH EYES TWICE A DAY Ophthalmic Lisinopril 10 MG Take 1 tablet [...] MG 1 tablet Orally Once a day Mupirocin 2 % 1 application Differential Tester ally Twice a day for 5 days 05/13/2025 06/02/2025 Jardiance 10 MG TAKE 1 TABLET ONCE D AILY Oral Vitamin D Acetaminophen Pending Test Test Name Order Date Routine Culture 05/13/2025 Next Appt Details Follow Up: 1 Week, Reason: o v Provider Name:Marcelino Mayers , 05/20/2025 01:15:00 PM, [address] [place] [address] [address], [place], [address], Provider Name:Marcelino Mayers , 09/02/2025 10:30:00 AM, [address] [place] [address] [address], [facility] [place], [address], Progress Notes * Tate ADAMS DDOB: [birth year] (79 yo M)Acc No.[id number]:05/13/2025 Patient: Tate SALCIDO Provider: Leif Mayers MD :1945 A ge:79 Y S ex:Male Date:05/13/2025 Address:[address] [place] [address] [address] [facility], [id number] Subjective: * Chief Complaints: * M aceration of skin left foot third and fourth toesDiabetesHypertensionThrombocytosisBenign prostatic hypertrophyObesity * HPI: C OVID-19 Screening: He comes in today because of inflammation and redness and pain between the second and third and third and fourth toes on his left foot. Upon inspection the skin is red and macerated and covered with secretions but the skin although macerated is intact. The foot is warm and pink there was instructed to wash with soap and water gently twice a day and dry it thoroughly and then apply mupirocin. He was referred to the wound clinic in [facility] for definitive treatment to prevent Deeper penetration and ulceration or even osteomyelitis. Questions H ave you had any new onset fever, chills, cough, congestion, sore throat, shortness of breath, muscle aches? N o * ROS: G eneral/Constitutional: pain L eft toes. C hills d enies. F atigue a dmits. F [...] enies. R eugenia d enies. S kin lesion(s)?Maceration and erythema of the area between the second and third and third and fourth toes.? N eurologic: Difficulty speaking d enies. D [...] Findings: Tobacco non-user A ggressive nonsmoker H michael is to [facility] and working and has no toxic exposures. He was born in [place], [place]. * Medications: T akingTamsulosin HCl 0.4 [...] Tablet TAKE 1 TABLET ONCE DAILY Oral Medication List reviewed and reconciled with the [...] WITH MEALS FOR 90 DAYS Taking Dorzolamide HCl- Timolol Mal 22.3-6.8 MG/ML Solution Ophthalmic Taking Brimonidine Tartrate 0.2 % Solution INSTILL 1 DROP INTO BOTH EYES TWICE A DAY Ophthalmic Taking Vitamin D Taking Acetaminophen Taking Jardiance 10 MG Tablet TAKE 1 TABLET ONCE DAILY Oral Medication List reviewed and reconciled with the patient * Allergies: N o Known Drug Allergyno[Allergies Verified] Objective: * Vitals: H t: 74, Wt:261, BMI:33.51, BP:149/67, HR:56, Temp:97.9, Wt-k.39. * Examination: G eneral Examination: GENERAL APPEARANCE: p leasant, well nourished, well developed, in no acute distress, calm and relaxed: obese: man. HEAD: a traumatic, normocephalic. EYES: e farhad, perrla, anicteric, conjugate. EARS: : Normal anatomy with bilateral hearing loss. NOSE: s eptum intact. ORAL [...] e xtremities unremarkable, no clubbing, cyanosis or edema, Skin feet clean the second and third and third and fourth toes of the left foot is macerated and red with impending breakdown, remainder of foot pink and warm, opposite foot intact.? PERIPHERAL PULSES: n ormal. NEUROLOGIC: a lert and oriented, cranial nerves 2-12 grossly intact, deep tendon reflexes 2+ symmetrical, motor strength normal upper and lower extremities, sensory exam intact. PSYCH: a lert, oriented. Assessment: * Assessment: 1. N on-pressure chronic ulcer of other part of left foot limited to breakdown of skin - L97.521 (Primary) N otes :The skin between the second and third and third and fourth left foot toes is soft and white and red and macerated but still intact. There is no smell. The remainder of the toes and skin of the foot is pink and warm. He is going to wash the area with soap and water and dry it well twice a day and apply mupirocine until he can get to the wound clinic at [facility] for definitive care. I will see him weekly along with them. 2 . H yperlipidemia - E78.5 N otes :His lipids are currently stable and no change in his regimen was necessary today. I have strongly encouraged him to lose weight aggressively. 3 . E ssential hypertension - I10 N otes :His blood pressure has been controlled. His systolic blood pressure has risen slightly with the 5 pound weight gain. He has lost 8 pounds and will continue to do so. No change was made in his regimen. The pressure does not drop we may need to adjust his medications. 4 . B PH (benign prostatic hyperplasia) - N40.0 N otes :He has been rising from sleep once or twice a night to urinate. We have discussed lifestyle modifications he could make to reduce nocturia. 5 . E ssential thrombocytosis - D47.3 N otes :His platelets are in the normal range and no change to the anagrelide dose was necessary today. He will continue on that medication without change. 6 . S ensorineural hearing loss (SNHL) of both ears - H90.3 N otes :He is currently being fitted for hearing aids. 7 . O besity (BMI 30.0-34.9) - E66.9 N otes :We have discussed his diet and nutrition again. He will avoid oranges and bananas and tomatoes. He will try to lose weight at a rate of one half of a pound per week. 8 . T ype 2 diabetes mellitus without complication, without long-term current use of insulin - E11.9 N otes :His hemoglobin A1c was 6.4 and he has lost weight. We made a plan to continue weight loss. No change in his medications was made.Comprehensive blood work will another A1c was ordered prior to his next visit Plan: * Treatment: 2. H yperlipidemia Continue [...] 10 MG, TAKE 1 TABLET ONCE DAILY, Oral; S tart Mupirocin Ointment, 2 %, 1 application, Externally, Twice a day, 5 days, 30 Gram, Refills 3. 3. T ype 2 diabetes mellitus without complication, without long-term current use of insulin Continue Acetaminophen. 4. O thers Continue Tamsulosin HCl Capsule, [...] week. * Follow Up: 1 Week (Reason: ov) * Images: * Sign off status: Completed true * Provider: Leif Mayers MD Date: 07/13/2024 Generated for James sosa/Martin/Ascencion on: 07/13/2024 07:11 [...] EYES: eomi, perrla, anicte vianney, conjugate EARS: : Normal anatomy wit h bilateral hearing loss NOSE: septum intact NECK/THYROID: no [...] extremities unremark able, no clubbing, cyanosis or edema, Skin feet clean the second and third and third and fourth toes of the left foot is macerated and red with impending breakdown, remainder of foot pink and warm, opposite foot intact LYMPH NODES: no enlarged lymph no adam,spleen normal RECTAL EXAM: not examined PSYCH: alert, oriented ORAL CAVITY: normal, unremarkable
--- OUTSIDE RECORDS SUMMARY | 2025-05-13 19:09 | XMS_ITS | Patient Health Record ---
Author Organization Marcelino Mayers III, MD Address [address] [place] [address] Care Team Providers Care Distribution Lead Name Role Phone Dr. Marcelino Mayers III [...] 0.2 - 1.3 BLD Negative Negative - Reason For Referral Reason Consult and Treat Diagnosis 1 Type 2 diabetes dayami itus without complication, without long-term current use of insulin (E11.9) Referral Organization Marcelino Mayers III, MD Referring Provider First Name Marcelino Referring Provider Last Name Talib Referring Provider Speciality Internal M edicine Referred Provider [facility] Sandip Connors Referred Provider Specialty Podiatry General Notes Tori Perez 08/11/2024 10:37:22 AM > Referral faxed per patient request due to insurance change. Patient has upcoming appointment in October 2024 Referral Priority Routine Referral Appointment Date 10/13/2024 Reason Evaluate and Treat Chronic Kidney Disease [...] Referral Priority Routine Referral Appointment Date 01/08/2025 Medications Medication SIG (Take, Route, Frequency, Duration) Notes Start Date End Date Status Pioglitazone HCl 30 MG 1 tablet Orally O nce a day Active Mupirocin 2 % 1 application Hooker Machine Tender ally Twice a day for 5 days 05/13/2025 06/02/2025 Active Anagrelide HCl 1 MG TAKE 2 CAPSULES BY M OUTH ONCE DAILY Orally once daily Active Dorzolamide HCl-Timolol Mal 22.3-6.8 MG/ML Ophthalmic Active Brimonidine Tartrate 0.2 % INSTILL 1 RAJAT P INTO BOTH EYES TWICE A DAY Ophthalmic Active Lisinopril 10 MG Take 1 tablet by delilah th once daily Active metFORMIN HCl 1000 MG TAKE 1 TABLET BY M OUTH TWICE DAILY WITH MEALS FOR 90 DAYS Active Tamsulosin HCl 0.4 MG TAKE 2 CAPSULES BY MOUTH ONCE DAILY Orally Once a day Active Jardiance 10 MG TAKE 1 TABLET ONCE D AILY Oral Active glipiZIDE 10 MG 1 tablet 30 minutes before breakfast Orally Once a day Active Vitamin D Active Acetaminophen Active Simvastatin 80 MG 1 tablet in the even ing Orally Once a day Active Immunizations Vaccine Route Administration Date Status Comme nts Influenza IM Intramuscular 07/30/2012 Administered Influenza Unknown 05/20/2015 Administered Influenza Unknown 07/26/2016 Administered Influenza no Preserv 3 and > Unknown 07/26/2018 Administered Influenza no Preserv 3 and > IM Intramuscular 05/05/2020 Administered COVID- 19 Vaccine Unknown 09/05/2020 Administered first Pfizer COVID- 19 Vaccine Unknown 09/26/2020 Administered Martha Covington Influenza, quad Unknown 05/02/2021 Administered FLuzone HD PF Unknown 05/08/2022 Administered COVID PFIZER Unknown 10/24/2021 Administered PCV20 Unknown 11/16/2022 Administered SHINGRIX Unknown 03/14/2023 Administered Moderna COVID 19 Spikevax Unknown 04/23/2023 Administered Tdap Unknown 03/09/2018 Administered RSV vaccine, bivalent, protein subunit RSV prefusion F Unknown 06/05/2023 Administered COVID-19 Moderna SPIKEVAX Unknown 04/23/2023 Administered COVID PFIZER Unknown 09/05/2020 Administered COVID PFIZER Unknown 09/26/2020 Administered COVID PFIZER Unknown 04/14/2021 Administered COVID Pfizer Bivalent Unknown 05/04/2022 Administered Influenza-iiv4 p-free high dose Unknown 05/02/2023 Administered Influenza no Preserv 3 and > Unknown 03/03/2024 Administered COMIRNATY Pfizer-BioNTech Unknown 03/14/2024 Administered Social History Tobacco Use: Social History Observation [...] ast year? No Points 0 Interpretation Negative Problems Problem Type SNOMED Code ICD Code Onset Dates Problem Status W/U Status Risk Notes Problem 27685391 Hyperlipidemia (E78.5) Active confirmed His lipids are currently stable and no change in his regimen was necessary today. I have strongly encouraged him to lose weight aggressively. Problem 896797020803005 Obesity (BMI 30.0-34.9) (E66.9) Active confirmed We have discussed his diet and nutrition again. He will avoid oranges and bananas and tomatoes. He will try to lose weight at a rate of one half of a pound per week. Problem 453860294 Essential thrombocytosis (D47.3) Active confirmed His platelets are in the normal range and no change to the anagrelide dose was necessary today. He will continue on that medication without change. Problem 225330380240492 Type 2 diabetes mellitus with foot ulcer (E11.621) Active confirmed Problem 45243164068497598 Non-pressure chronic ulcer of other part of left foot limited to breakdown of skin (L97.521) Active confirmed The skin betw een the second and third and third and [...] can get to the wound clinic at [facility] for definitive care. I will see him weekly along with them. Problem 067297273 BPH (benign prostatic hyperplasia) (N40.0) Active confirmed He has been rising from sleep once or twice a night to urinate. We have discussed lifestyle modifications he could make to reduce nocturia. Problem 94567453 Essential hypertension (I10) Active confirmed His blood pressure has been controlled. His systolic blood pressure has risen slightly with the 5 pound weight gain. He has lost 8 pounds and will continue to do so. No change was made in his regimen. The pressure does not drop we may need to adjust his medications. Problem 24332056 Glaucoma (H40.9) Active confirmed He is compliant with using his ocular medication. He will see the mat machine operator regularly. Problem 62799766 Vitamin D deficiency (E55.9) Active confirmed He will continu e on his vitamin D supplementation during the winter. Problem 049532850 Tubular adenoma of colon (D12.6) Active confirmed He will be due for his next colonoscopy in 2019. We discussed this today. Problem 85013083 Left sided sciatica (M54.32) Active confirmed His pain is muc h improved. We discussed a resumption to normal activity. Problem 946158247 Type 2 diabetes mellitus without complication, without long-term current use of insulin (E11.9) Active confirmed His hemoglob in A1c was 6.4 and he has lost weight. We made a plan to continue weight loss. No change in his medications was made.Comprehensi ve blood work will another A1c was ordered prior to his next visit Problem 266182947 Sensorineural hearing loss (SNHL) of both ears (H90.3) Active confirmed He is currently being fitted for hearing aids. Problem Chronic kidney disease stage 3 (disorder) (963866305) Chronic kidney disease, stage 3 unspecified (N18.30) Active confirmed His renal function remains slightly abnormal likely due to the diabetes. Will be monitored closely. He was encouraged to remain hydrated during the warm summer weather. Vital Signs Heart Rate 56 /min 05/13/2025 Temperature 97.9 degrees Fahrenheit 05/13/2025 Blood pressure diastolic 67 mm Hg 05/13/2025 Height 74 in 05/13/2025 Blood pressure systolic 149 mm Hg 05/13/2025 Weight 261 lbs 05/13/2025 BMI 33.51 kg/m2 05/13/2025 Encounters Encounter Location Date Provider Diagnosis Marcelino Mayers III, MD [address] [place] [address] [place] [address] 09/01/2024 Marcelino Mayers Hyperlipidemia E78.5 ; Essential thrombocytosis D47.3 ; BPH (benign prostatic hyperplasia) N40.0 ; Essential hypertension I10 and DM w/o complication type II E11.9 Marcelino Mayers III, MD [address] [place] [address] [place] [address] 12/30/2024 Marcelino Mayers Hyperlipidemia E78.5 ; Type 2 diabetes mellitus without complication, without long-term current use of insulin E11.9 ; Obesity (BMI 30.0-34.9) E66.9 ; Glaucoma H40.9 ; Essential hypertension I10 ; BPH (benign prostatic hyperplasia) N40.0 ; Essential thrombocytosis D47.3 ; Sensorineural hearing loss (SNHL) of both ears H90.3 and Chronic kidney disease, stage 3 unspecified N18.30 Marcelino Mayers III, MD [address] [place] [address] [place] [address] 04/01/2025 Marcelino Mayers Hyperlipidemia E78.5 ; Essential thrombocytosis D47.3 ; Type 2 diabetes mellitus without complication, without long-term current use of insulin E11.9 ; Obesity (BMI 30.0-34.9) E66.9 ; Essential hypertension I10 ; BPH (benign prostatic hyperplasia) N40.0 and Chronic kidney disease, stage 3 unspecified N18.30 Marcelino Mayers III, MD [address] [place] [address] [place] [address] 04/08/2025 aMrcelino Mayers Hyperlipidemia E78.5 ; Chest discomfort R07.89 ; Type 2 diabetes mellitus without complication, without long-term current use of insulin E11.9 ; Essential hypertension I10 ; BPH (benign prostatic hyperplasia) N40.0 ; Essential thrombocytosis D47.3 ; Sensorineural hearing loss (SNHL) of both ears H90.3 ; Obesity (BMI 30.0-34.9) E66.9 and Chronic kidney disease, stage 3 unspecified N18.30 Marcelino Mayers III, MD [address] [place] [address] [place] [address] 04/27/2025 Marcelino Mayers Hyperlipidemia E78.5 ; Obesity (BMI 30.0-34.9) E66.9 ; Type 2 diabetes mellitus without complication, without long-term current use of insulin E11.9 and Essential thrombocytosis D47.3 Marcelino Mayers III, MD [address] [place] [address] [place] [address] 05/13/2025 Marcelino Mayers Hyperlipidemia E78.5 ; Non-pressure chronic ulcer of other part of left foot limited to breakdown of skin L97.521 ; Essential hypertension I10 ; BPH (benign prostatic hyperplasia) N40.0 ; Essential thrombocytosis D47.3 ; Sensorineural hearing loss (SNHL) of both ears H90.3 ; Obesity (BMI 30.0-34.9) E66.9 and Type 2 diabetes mellitus without complication, without long-term current use of insulin E11.9 Marcelino Mayers III, MD [address] [place] [address] [place] [address] 08/04/2024 Marcelino Mayers III, MD [address] [place] [address] [place] [address] 08/11/2024 Marcelino Mayers III, MD [address] [place] [address] [place] [address] 08/22/2024 Marcelino Mayers III, MD [address] [place] [address] [place] [address] 09/11/2024 Marcelino Mayers III, MD [address] [place] [address] [place] [address] 09/18/2024 Marcelino Mayers III, MD [address] [place] [address] [place] [address] 11/12/2024 Marcelino Mayers Assessments Encounter Date Diagnosis (ICD Code) Assessment [...] continue on that medication without change. 12/30/2024 Hyperlipidemia (ICD-10 - E78.5) His lipids [...] No change in his medications was made. 04/01/2025 Hyperlipidemia (ICD-10 - E78.5) His lipids are currently stable and no change in his regimen was necessary today. I have strongly encouraged him to lose weight aggressively. 04/01/2025 Essential thrombocytosis (ICD-10 - D47.3) His platelets are in the normal range and no change to the anagrelide dose was necessary today. He will continue on that medication without change. 04/08/2025 Hyperlipidemia (ICD-10 - E78.5) His lipids are currently stable and no change in his regimen was necessary today. I have strongly encouraged him to lose weight aggressively. 04/08/2025 Chest discomfort (ICD-10 - R07.89) This symptom appears to be esophageal reflux referring cardiac ischemia. Another followup visit by [facility] and 14 days was arranged to confirm this. 04/27/2025 Hyperlipidemia (ICD-10 - E78.5) His lipids [...] half of a pound per week. 05/13/2025 Hyperlipidemia (ICD-10 - E78.5) His lipids [...] can get to the wound clinic at [facility] for definitive care. I will see him weekly along with them. 09/01/2024 BPH (benign prostatic hyperplasia) (ICD-10 - N40.0) He has been rising from sleep once or twice a night to urinate. We have discussed lifestyle modifications he could make to reduce nocturia. 12/30/2024 Obesity (BMI 30.0-34.9) (ICD-10 - E66.9) He has lost 8 pounds through diet and exercise. We discussed diet and nutrition today. We made a plan continue his weight loss at a rate of 1 pound per week. 04/01/2025 Type 2 diabetes mellitus without complication, without long-term current use of insulin (ICD-10 - E11.9) His hemoglobin A1c was 6.4 and he has lost weight. We made a plan to continue weight loss. No change in his medications was made.Comprehensive blood work will another A1c was ordered prior to his next visit 04/08/2025 Type 2 diabetes mellitus without complication, without long-term current use of insulin (ICD-10 - E11.9) His hemoglobin A1c was 6.4 and he has lost weight. We made a plan to continue weight loss. No change in his medications was made.Comprehensive blood work will another A1c was ordered prior to his next visit 04/27/2025 Type 2 diabetes mellitus without complication, without long-term current use of insulin (ICD-10 - E11.9) His hemoglobin A1c was 6.4 and he has lost weight. We made a plan to continue weight loss. No change in his medications was made.Comprehensive blood work will another A1c was ordered prior to his next visit 05/13/2025 Essential hypertension (ICD-10 - I10) His blood pressure has been controlled. His systolic blood pressure has risen slightly with the 5 pound weight gain. He has lost 8 pounds and will continue to do so. No change was made in his regimen. The pressure does not drop we may need to adjust his medications. 09/01/2024 Essential hypertension (ICD-10 - I10) His blood pressure has been fluctuating. His systolic blood pressure was 140 today. He has lost 3 pounds and will continue to do so. No change was made in his regimen. The pressure does not drop we may need to adjust his medications. 12/30/2024 Glaucoma (ICD-10 - H40.9) He is compliant with using his ocular medication. He will see the mat machine operator regularly. 04/01/2025 Obesity (BMI 30.0-34.9) (ICD-10 - E66.9) He has gained 5 pounds. We discussed diet and nutrition today. We made a plan continue his weight loss at a rate of 1 pound per week. 04/08/2025 Essential hypertension (ICD-10 - I10) His blood pressure has been controlled. His systolic blood pressure has risen slightly with the 5 pound weight gain. He has lost 8 pounds and will continue to do so. No change was made in his regimen. The pressure does not drop we may need to adjust his medications. 04/27/2025 Essential thrombocytosis (ICD-10 - D47.3) His platelets are in the normal range and no change to the anagrelide dose was necessary today. He will continue on that medication without change. 05/13/2025 BPH (benign prostatic hyperplasia) (ICD-10 - N40.0) He has been rising from sleep once or twice a night to urinate. We have discussed lifestyle modifications he could make to reduce nocturia. 09/01/2024 DM w/o complication type II (ICD-10 - E11.9) His fasting glucose and hemoglobin A1c show good control of his diabetes. We will concentrate on weight loss and a healthy diet at this time. 12/30/2024 Essential hypertension (ICD-10 - I10) His blood pressure has been controlled. His systolic blood pressure wasnormal today. He has lost 8 pounds and will continue to do so. No change was made in his regimen. The pressure does not drop we may need to adjust his medications. 04/01/2025 Essential hypertension (ICD-10 - I10) His blood pressure has been controlled. His systolic blood pressure has risen slightly with the 5 pound weight gain. He has lost 8 pounds and will continue to do so. No change was made in his regimen. The pressure does not drop we may need to adjust his medications. 04/08/2025 BPH (benign prostatic hyperplasia) (ICD-10 - N40.0) He has been rising from sleep once or twice a night to urinate. We have discussed lifestyle modifications he could make to reduce nocturia. 05/13/2025 Essential thrombocytosis (ICD-10 - D47.3) His platelets are in the normal range and no change to the anagrelide dose was necessary today. He will continue on that medication without change. 12/30/2024 BPH (benign prostatic hyperplasia) (ICD-10 - N40.0) He has been rising from sleep once or twice a night to urinate. We have discussed lifestyle modifications he could make to reduce nocturia. 04/01/2025 BPH (benign prostatic hyperplasia) (ICD-10 - N40.0) [...] on that medication without change. 05/13/2025 Sensorineural hearing loss (SNHL) of both ears (ICD-10 - H90.3) He is currently being fitted for hearing aids. 12/30/2024 Essential thrombocytosis (ICD-10 - D47.3) His platelets are in the normal range and no change to the anagrelide dose was necessary today. He will continue on that medication without change. 04/01/2025 Chronic kidney disease, stage 3 unspecified (ICD-10 - N18.30) His renal function remains slightly abnormal likely due to the diabetes. Will be monitored closely. He was encouraged to remain hydrated during the warm summer weather. 04/08/2025 Sensorineural hearing loss (SNHL) of both ears (ICD-10 - H90.3) He is currently being fitted for hearing aids. 05/13/2025 Obesity (BMI 30.0-34.9) (ICD-10 - E66.9) We have discussed his diet and nutrition again. He will avoid oranges and bananas and tomatoes. He will try to lose weight at a rate of one half of a pound per week. 12/30/2024 Sensorineural hearing loss (SNHL) of both ears (ICD-10 - H90.3) He is currently being fitted for hearing aids. 04/08/2025 Obesity (BMI 30.0-34.9) (ICD-10 - E66.9) He has gained 5 pounds. We discussed diet and nutrition today. We made a plan continue his weight loss at a rate of 1 pound per week. 05/13/2025 Type 2 diabetes mellitus without complication, without long-term current use of insulin (ICD-10 - E11.9) His hemoglobin A1c was 6.4 and he has lost weight. We made a plan to continue weight loss. No change in his medications was made.Comprehensive blood work will another A1c was ordered prior to his next visit 12/30/2024 Chronic kidney disease, stage 3 unspecified (ICD-10 - N18.30) His renal function remains abnormal likely due to the diabetes. Will be monitored closely. He was encouraged to remain hydrated during the warm summer weather. 04/08/2025 Chronic kidney disease, stage 3 unspecified (ICD-10 - N18.30) His renal function remains slightly abnormal likely due to the diabetes. Will be monitored closely. He was encouraged to remain hydrated during the warm summer weather. Plan Of Treatment Pending Test Test Name Order Date ELECTROLYTES 12/27/2023 PROFILE, FASTING (COMPREHENSIVE METABOLI C) 05/16/2017 PROFILE, FASTING (COMPREHENSIVE METABOLI C) 08/28/2023 PROFILE, FASTING (COMPREHENSIVE METABOLI C) 12/28/2020 PROFILE, FASTING (COMPREHENSIVE METABOLI C) 02/19/2019 PROFILE, FASTING (COMPREHENSIVE METABOLI C) 03/13/2024 PROFILE, FASTING (COMPREHENSIVE METABOLI C) 08/30/2020 PROFILE, FASTING (COMPREHENSIVE METABOLI C) 01/23/2024 PROFILE, FASTING (COMPREHENSIVE METABOLI C) 05/05/2020 PROFILE, FASTING (COMPREHENSIVE METABOLI C) 04/11/2021 PROFILE, FASTING (COMPREHENSIVE METABOLI C) 05/21/2019 PROFILE, FASTING (COMPREHENSIVE METABOLI C) 02/14/2017 PROFILE, FASTING (COMPREHENSIVE METABOLI C) 03/09/2020 PROFILE, FASTING (COMPREHENSIVE METABOLI C) 08/22/2022 PROFILE, FASTING (COMPREHENSIVE METABOLI C) 05/09/2022 PROFILE, FASTING (COMPREHENSIVE METABOLI C) 11/21/2022 PROFILE, FASTING (COMPREHENSIVE METABOLI C) 01/01/2020 PROFILE, FASTING (COMPREHENSIVE METABOLI C) 06/28/2023 PROFILE, FASTING (COMPREHENSIVE METABOLI C) 01/30/2022 PROFILE, FASTING (COMPREHENSIVE METABOLI C) 03/20/2023 PROFILE, FASTING (COMPREHENSIVE METABOLI C) 09/01/2024 PROFILE, FASTING (COMPREHENSIVE METABOLI C) 04/27/2025 PROFILE, FASTING (COMPREHENSIVE METABOLI C) 09/02/2019 PROFILE, FASTING (COMPREHENSIVE METABOLI C) 12/30/2024 PROFILE, FASTING (COMPREHENSIVE METABOLI C) 07/12/2021 PROFILE, FASTING (COMPREHENSIVE METABOLI C) 03/20/2018 HEMOGLOBIN A1C (GLYCOHEMOGLOBIN) 020 HEMOGLOBIN A1C (GLYCOHEMOGLOBIN) 018 HEMOGLOBIN A1C (GLYCOHEMOGLOBIN) 017 HEMOGLOBIN A1C (GLYCOHEMOGLOBIN) 024 HEMOGLOBIN A1C (GLYCOHEMOGLOBIN) 019 HEMOGLOBIN A1C (GLYCOHEMOGLOBIN) 021 HEMOGLOBIN A1C (GLYCOHEMOGLOBIN) 019 HEMOGLOBIN A1C (GLYCOHEMOGLOBIN) 020 HEMOGLOBIN A1C (GLYCOHEMOGLOBIN) 021 HEMOGLOBIN A1C (GLYCOHEMOGLOBIN) 017 HEMOGLOBIN A1C (GLYCOHEMOGLOBIN) 020 HEMOGLOBIN A1C (GLYCOHEMOGLOBIN) 021 HEMOGLOBIN A1C (GLYCOHEMOGLOBIN) 023 HEMOGLOBIN A1C (GLYCOHEMOGLOBIN) 023 HEMOGLOBIN A1C (GLYCOHEMOGLOBIN) 020 HEMOGLOBIN A1C (GLYCOHEMOGLOBIN) 022 HEMOGLOBIN A1C (GLYCOHEMOGLOBIN) 023 BUN 02/19/2019 BUN 04/05/2021 CREATININE 04/05/2021 CREATININE 02/19/2019 LIPID PANEL 01/01/2020 LIPID PANEL 01/30/2022 LIPID PANEL 03/20/2023 LIPID PANEL 07/12/2021 LIPID PANEL 11/21/2022 LIPID PANEL 12/28/2020 LIPID PANEL 09/02/2019 LIPID PANEL 03/20/2018 LIPID PANEL 05/16/2017 LIPID PANEL 08/28/2023 LIPID PANEL 08/30/2020 LIPID PANEL 05/21/2019 LIPID PANEL 05/05/2020 LIPID PANEL 04/11/2021 LIPID PANEL 02/14/2017 LIPID PANEL 03/09/2020 LIPID PANEL 02/19/2019 LIPID PANEL 08/22/2022 PSA, TOTAL 09/01/2024 PSA, TOTAL 04/27/2025 PSA, TOTAL 03/20/2023 PSA, TOTAL 04/01/2025 PSA, TOTAL 03/20/2018 PSA, TOTAL 05/16/2017 PSA, TOTAL 08/30/2020 PSA, TOTAL 05/09/2022 PSA, TOTAL+FREE 07/12/2021 MICROALBUMIN, RANDOM 08/22/2022 MICROALBUMIN, RANDOM 01/30/2022 MICROALBUMIN, RANDOM 03/20/2018 MICROALBUMIN, RANDOM 05/05/2020 CBC w DIFF 03/09/2020 CBC w DIFF 05/09/2022 CBC w DIFF 02/19/2019 CBC w DIFF 12/30/2024 CBC w DIFF 09/01/2024 CBC w DIFF 01/01/2020 CBC w DIFF 04/27/2025 CBC w DIFF 08/22/2022 CBC w DIFF 01/23/2024 CBC w DIFF 11/21/2022 CBC w DIFF 12/28/2020 CBC w DIFF 01/30/2022 CBC w DIFF 09/02/2019 CBC w DIFF 03/20/2023 CBC w DIFF 07/12/2021 CBC w DIFF 08/28/2023 CBC w DIFF 05/21/2019 CBC w DIFF 04/11/2021 CBC w DIFF 05/16/2017 CBC w DIFF 02/14/2017 CBC w DIFF 08/30/2020 CBC w DIFF 03/20/2018 CBC w DIFF 05/05/2020 VITAMIN D 25-OH TOTAL 05/09/2022 VITAMIN D 25-OH TOTAL 08/22/2022 VITAMIN D 25-OH TOTAL 11/21/2022 CBC WITH AUTO DIFF 03/13/2024 CBC WITH AUTO DIFF 06/28/2023 Uric Acid 06/28/2023 Lipid Panel 06/28/2023 Lipid Panel 12/30/2024 Lipid Panel 09/01/2024 Lipid Panel 05/09/2022 Lipid Panel 04/27/2025 Lipid Panel 03/13/2024 Lipid Panel 01/23/2024 Vitamin D 25-OH Total 06/28/2023 Microalbumin, Random 09/01/2024 Microalbumin, Random 06/28/2023 Microalbumin, Random 01/23/2024 ECG w rhythm strip 12/27/2023 Routine Culture 05/13/2025 Hemoglobin A1c 04/27/2025 Hemoglobin A1c 03/13/2024 Hemoglobin A1c 04/01/2025 Hemoglobin A1c 09/01/2024 Hemoglobin A1c 06/28/2023 Hemoglobin A1c 01/23/2024 Next Appt Details Provider Name:Marcelino Mayers , 05/20/2025 01:15:00 PM, [address] [place] [address] [address], [place], [address], Provider Name:Marcelino Mayers , 09/02/2025 10:30:00 AM, [address] [place] [address] [address], [place], [address], Insurance Providers Payer Name Payer Address Payer Phone Subscriber Number Group Number Insured Name Patient Relationship to Insured Coverage Start Date Coverage End Date [facility] [address] [place], [place] [id number] Tate Adams Self - patient is the insured MEDICARE NGS [address] [place] [address] [id number] Tate Adams Self - patient is the insured Medical (General) History Medical History History ICD Code glaucoma diabetes mellitus hyperlipidemia hypertension obesity essential thrombocytosis tubular adenomas-colonic polyps Surgical History Surgery Date(Month/Year) Cataract surgery Colonoscopy Dr. Hatch 08/[address] Sampson hyperplastic polyp, h/o tubular adenomata 04/2014 Hospitalization History Reason Date(Month/Year) false heart attack
--- OUTSIDE RECORDS SUMMARY | 2025-05-13 19:10 | XMS_ITS | Encounter Summary ---
Author Organization [facility] Address [address] [place] [address] Phone Care Team Providers Care Eastern Philosophy Professor Name Role Phone Marcelino Mayers MD Primary Care Provider +1- [phone] Encounter Details Date Type Department Care Team (Latest Contact Info) Description 02/25/2019 Transcribe Orders [address] [place] [address] Marcelino Mayers MD [address] [place] [address] [place] [address] Hyperlipidemia, unspecified hyperlipidemia type (Primary Dx); Type 2 diabetes mellitus without complication, unspecified whether fdc insulin use; Hypertension, unspecified type Social History Tobacco Use Types Packs/Day Years Used Date Smoking Tobacco: Never Assessed Sex and Gender Information Value Date Recorded Sex Assigned at Not on file Legal Sex Male 10:07 PM EDT Gender Identity Not on file Sexual Orientation Not on file documented as of this encounter Plan of Treatment Not on file documented as of this encounter Results * (ABNORMAL) Creatinine/eGFR (02/25/2019 4:47 PM EDT) CREATININE 1.50 0.5 - 1.5 mg/dL [facility] EGFR 46(L) >59 mL/min/1.7 3m2 [facility] Comment:If patient is black, multiply result by 1.159. Estimated glomerular filtration rate calculated using the CKD-EPI equation. Blood 02/25/2019 4:47 PM EDT 02/25/2019 4:50 PM EDT us Marcelino Mayers MD LAB BLOOD BKR ORDERABLES F inal Result Performing Organization Address City/[facility]/ZIP Co de Phone Number [address] [address] * (ABNORMAL) BUN (02/25/2019 4:47 PM EDT) BUN 31(H) 6 - 19 mg/dL [facility] Blood 02/25/2019 4:47 PM EDT 02/25/2019 4:50 PM EDT us Marcelino Mayers MD LAB BLOOD BKR ORDERABLES F inal Result Performing Organization Address [facility] Co de Phone Number [address] [address] documented in this encounter Visit Diagnoses Diagnosis Hyperlipidemia, unspecified hyperlipidemia type- Primary Type 2 diabetes mellitus without complication, unspecified whether continuous churn buttermaker insulin use Hypertension, unspecified type documented in this encounter Care Teams Eastern Philosophy Professor Relationship Specialty Start Date End Date Marcelino Mayers MD [address] [place] [address] PCP - General Medical Oncology 09/17/18 documented as of this encounter Additional Source Comments The information contained in this document represents components of the legal health record. It is not the complete legal health record.[facility]
--- OUTSIDE RECORDS SUMMARY | 2025-05-13 19:10 | XMS_ITS | Encounter Summary ---
Author Organization [facility] Address [address] [place] [address] Phone Care Team Providers Care Errand Runner Name Role Phone Marcelino Mayers MD Primary Care Provider +1- [phone] Encounter Details Date Type Department Care Team (Latest Contact Info) Description 05/15/2019 Transcribe Orders [address] [place] [address] Marcelino Mayers MD [address] [place] [address] [place] [address] Hyperlipidemia, unspecified hyperlipidemia type (Primary Dx); Type 2 diabetes mellitus without complication, unspecified whether senior care insulin use; Essential hypertension Social History Tobacco Use Types Packs/Day Years Used Date Smoking Tobacco: Never Assessed Sex and Gender Information Value Date Recorded Sex Assigned at Not on file Legal Sex Male 10:07 PM EDT Gender Identity Not on file Sexual Orientation Not on file documented as of this encounter Plan of Treatment Not on file documented as of this encounter Results * (ABNORMAL) CBC and differential (05/15/2019 8:30 AM EST) WBC 6.46 3.40 - 11.20 K/uL [facility] RBC 3.99(L) 4.50 - 5.50 M/uL [facility] HGB 12.1(L) 13.0 - 17.0 g/dL [facility] HCT 38.6(L) 40.0 - 51.0 % [facility] PLT 360 130 - 400 K/uL [facility] MCV 96.7 79.0 - 98.0 fL [facility] MCH 30.3 27.0 - 34.8 pg [facility] MCHC 31.3(L) 31.5 - 36.0 g/dL [facility] RDW 14.2 10.8 - 14.6 % [facility] MPV 11.2 9.4 - 12.4 fl [facility] NRBC 0.00 0.00 /100 WBCs [facility] ABSOLUTE NRBC 0.00 0.00 K/uL [facility] DIFF METHOD Auto [facility] NEUTS 65.8 45.30 - 77.70 % [facility] LYMPHS 19.3 12.30 - 39.70 % [facility] MONOS 11.8 4.10 - 12.80 % [facility] EOS 1.7 0 - 7.2 % [facility] BASOS 0.8 0 - 2.80 % [facility] Granulocytes, immature (%) 0.6 0.0 - 0.9 % [facility] ABSOLUTE NEUTS 4.25 1.40 - 7.70 K/uL [facility] ABSOLUTE LYMPHS 1.25 0.60 - 3.20 K/uL [facility] ABSOLUTE MONOS 0.76(H) 0.11 - 0.59 K/uL [facility] ABSOLUTE EOS 0.11 0.01 - 0.50 K/uL [facility] ABSOLUTE BASOS 0.05 0.00 - 0.08 K/uL [facility] Granulocytes, immature 0.04 0.00 - 0.05 K/uL [facility] Blood 05/15/2019 8:30 AM EST 05/15/2019 8:34 AM EST us Marcelino Mayers MD LAB BLOOD BKR ORDERABLES F inal Result [address] [address] * (ABNORMAL) Lipid panel (05/15/2019 8:30 AM EST) HDL 42 mg/dL [facility] Comment: Interpretation <40 mg/dL: Low HDL cholesterol (major risk factor for CHD) Greater than or equal to 60 mg/dL: High HDL cholesterol ( negative risk factor for CHD) HDL - cholesterol is affected by a number of factors, e.g. smoking, excerise, hormones, sex and age. CHOLESTEROL 179 0 - 240 mg/dL [facility] TRIGLYCERIDES 218(H) 30 - 160 mg/dL [facility] LDL 93 50 - 129 mg/dL [facility] Comment: LDL levels in terms of risk for coronary heart disease: <100 mg/dL: Optimal 100-129 mg/dL: Near or above optimal 130-159 mg/dL: Borderline high 160-189 mg/dL: High >190 mg/dL: Very High CARDIAC RISK RATIO 4.3 3.4 - 5.0 C [facility] Blood 05/15/2019 8:30 AM EST 05/15/2019 8:34 AM EST us Marcelino Mayers MD LAB BLOOD BKR ORDERABLES F inal Result Performing Organization Address [facility] Co de Phone Number [address] [address] * (ABNORMAL) Hemoglobin A1c (05/15/2019 8:30 AM EST) HEMOGLOBIN A1C 6.8(H) 4.3 - 5.8 % [facility] Blood 05/15/2019 8:30 AM EST 05/15/2019 8:34 AM EST us Marcelino Mayers MD LAB BLOOD BKR ORDERABLES F inal Result Performing Organization Address [facility] Co de Phone Number [address] [address] * (ABNORMAL) Comprehensive metabolic panel (05/15/2019 8:30 AM EST) SODIUM 140 133 - 146 mmol/L [facility] POTASSIUM 5.6(H) 3.3 - 5.1 mmol/L [facility] CHLORIDE 104 96 - 108 mmol/L [facility] CO2 24 21 - 35 mmol/L [facility] BUN 23(H) 6 - 19 mg/dL [facility] CREATININE 1.60(H) 0.5 - 1.5 mg/dL [facility] GLUCOSE 152(H) 70 - 99 mg/dL [facility] ALBUMIN 4.2 3.9 - 4.8 g/dL [facility] TOTAL PROTEIN 7.1 6.5 - 8.0 g/dL [facility] CALCIUM 9.7 8.4 - 10.3 mg/dL [facility] ALKALINE PHOSPHATASE 78 39 - 117 U/L [facility] TOTAL BILIRUBIN 0.3 0.0 - 1.2 mg/dL [facility] AST 23 0 - 37 U/L [facility] ALT 14 0 - 40 U/L [facility] GLOBULIN 2.9 1 - 4.8 g/dL [facility] EGFR 42(L) >59 mL/min/1.7 3m2 [facility] Comment:If patient is black, multiply result by 1.159. Estimated glomerular filtration rate calculated using the CKD-EPI equation. ANION GAP 18 10 - 20 mmol/L [facility] Blood 05/15/2019 8:30 AM EST 05/15/2019 8:34 AM EST us Marcelino Mayers MD LAB BLOOD BKR ORDERABLES F inal Result [facility] [address] [place] [address] documented in this encounter Visit Diagnoses Diagnosis Hyperlipidemia, unspecified hyperlipidemia type- Primary Type 2 diabetes mellitus without complication, unspecified whether senior care insulin use Essential hypertension Unspecified essential hypertension documented in this encounter Care Teams Errand Runner Relationship Specialty Start Date End Date Marcelino Mayers MD [address] [place] [address] [place] [address] PCP - General Medical Oncology 09/17/18 documented as of this encounter Additional Source Comments The information contained in this document represents components of the legal health record. It is not the complete legal health record.[facility]
--- OUTSIDE RECORDS SUMMARY | 2025-05-13 19:10 | XMS_ITS | Encounter Summary ---
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 RBC 4.01 3.90 - 5.69 M/uL [facility] HGB 12.3(L) 12.4 - 17.3 g/dL [facility] Comment:Note updated Referen ce Ranges for all CBC and Differential results. HCT 38.4 37.0 - 51.0 % [facility] PLT 414 140 - 430 K/uL [facility] MCV 95.8 78.0 - 97.0 fL [facility] MCH 30.7 25.0 - 33.0 pg [facility] MCHC 32.0 32.0 - 36.0 g/dL [facility] RDW 14.2 11.0 - 15.0 % [facility] MPV 10.9 8.4 - 12.8 fl [facility] NRBC 0.00 0 /100 WBCs [facility] ABSOLUTE NRBC 0.00 0 K/uL [facility] DIFF METHOD Auto [facility] NEUTS 67.4 43.0 - 75.0 % [facility] LYMPHS 18.7 18.2 - 47.4 % [facility] MONOS 10.9 4.00 - 11.00 % [facility] EOS 1.9 0.0 - 8.0 % [facility] BASOS 0.5 0.0 - 2.0 % [facility] Granulocytes, immature (%) 0.6 0.0 - 0.9 % [facility] ABSOLUTE NEUTS 5.25 1.80 - 7.70 K/uL [facility] ABSOLUTE LYMPHS 1.46 1.00 - 3.10 K/uL [facility] ABSOLUTE MONOS 0.85(H) 0.20 - 0.80 K/uL [facility] ABSOLUTE EOS 0.15 0.00 - 0.80 K/uL [facility] ABSOLUTE BASOS 0.04 0.00 - 0.09 K/uL [facility] Granulocytes, immature 0.05 0.00 - 0.05 K/uL [facility] Blood 03/02/2020 9:01 AM EDT 03/02/2020 9:04 AM EDT us Marcelino Mayers MD LAB BLOOD BKR ORDERABLES F inal Result [facility] [address] [place] [address] * (ABNORMAL) Lipid panel (03/02/2020 9:01 AM EDT) HDL 40 mg/dL [facility] Comment: Interpretation <40 mg/dL: Low HDL cholesterol (major risk factor for CHD) Greater than or equal to 60 mg/dL: High HDL cholesterol ( negative risk factor for CHD) HDL - cholesterol is affected by a number of factors, e.g. smoking, excerise, hormones, sex and age. CHOLESTEROL 166 0 - 240 mg/dL [facility] TRIGLYCERIDES 227(H) 30 - 160 mg/dL [facility] LDL 81 50 - 129 mg/dL [facility] Comment: LDL levels in terms of risk for coronary heart disease: <100 mg/dL: Optimal 100-129 mg/dL: Near or above optimal 130-159 mg/dL: Borderline high 160-189 mg/dL: High >190 mg/dL: Very High CARDIAC RISK RATIO 4.2 3.4 - 5.0 C [facility] Blood 03/02/2020 9:01 AM EDT 03/02/2020 9:04 AM EDT us Marcelino Mayers MD LAB BLOOD BKR ORDERABLES F inal Result Performing Organization Address City/[facility]/ZIP Co de Phone Number [address] [address] * (ABNORMAL) Hemoglobin A1c (03/02/2020 9:01 AM EDT) HEMOGLOBIN A1C 6.7(H) 4.3 - 5.8 % [facility] Blood 03/02/2020 9:01 AM EDT 03/02/2020 9:04 AM EDT us Marcelino Mayers MD LAB BLOOD BKR ORDERABLES F inal Result [address] [address] * (ABNORMAL) Comprehensive metabolic panel (03/02/2020 9:01 AM EDT) SODIUM 139 133 - 146 mmol/L [facility] POTASSIUM 5.5(H) 3.3 - 5.1 mmol/L [facility] CHLORIDE 105 96 - 108 mmol/L [facility] CO2 23 21 - 35 mmol/L [facility] BUN 34(H) 6 - 19 mg/dL [facility] CREATININE 1.60(H) 0.5 - 1.5 mg/dL [facility] GLUCOSE 164(H) 70 - 99 mg/dL [facility] ALBUMIN 4.4 3.9 - 4.8 g/dL [facility] TOTAL PROTEIN 7.0 6.5 - 8.0 g/dL [facility] CALCIUM 9.4 8.4 - 10.3 mg/dL [facility] ALKALINE PHOSPHATASE 65 39 - 117 U/L [facility] TOTAL BILIRUBIN 0.3 0.0 - 1.2 mg/dL [facility] AST 21 0 - 37 U/L [facility] ALT 12 0 - 40 U/L [facility] GLOBULIN 2.6 1 - 4.8 g/dL [facility] EGFR 42(L) >59 mL/min/1.7 3m2 [facility] Comment:Estimated glomerular filtration rate calculated using the CKD-EPI equation. 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 It is not the complete legal health record.[facility]
--- OUTSIDE RECORDS SUMMARY | 2025-05-13 19:10 | XMS_ITS | Encounter Summary ---
Author Organization [facility] Address [address] [place] [address] Phone Care Team Providers Care Rodding Anode Worker Name Role Phone Marcelino Mayers MD Primary Care Provider +1- [phone] Encounter Details Date Type Department Care Team (Late st Contact Info) Description 12/26/2019 Transcribe Orders [address] [place] [address] Marcelino Mayers MD [address] [place] [address] [place] [address] Type 2 diabetes mellitus without complication, unspecified whether terminal makeup operator insulin use (Primary Dx) Social History Tobacco Use Types Packs/Day Years [...] encounter Results * (ABNORMAL) CBC and differential (12/26/2019 8:58 AM EDT) WBC 7.81 4.00 - 11.00 K/uL [facility] Comment:Note Reference Range updates to all CBC and Differential results. RBC 3.84(L) 3.90 - 5.69 M/uL [facility] HGB 11.9(L) 12.4 - 17.3 g/dL [facility] Comment:Note updated Referen ce Ranges for all CBC and Differential results. HCT 36.0(L) 37.0 - 51.0 % [facility] PLT 406 140 - 430 K/uL [facility] MCV 93.8 78.0 - 97.0 fL [facility] MCH 31.0 25.0 - 33.0 pg [facility] MCHC 33.1 32.0 - 36.0 g/dL [facility] RDW 14.7 11.0 - 15.0 % [facility] MPV 10.8 8.4 - 12.8 fl [facility] NRBC 0.00 0 /100 WBCs [facility] ABSOLUTE NRBC 0.00 0 K/uL [facility] DIFF METHOD Auto [facility] NEUTS 65.7 43.0 - 75.0 % [facility] LYMPHS 18.2 18.2 - 47.4 % [facility] MONOS 12.7(H) 4.00 - 11.00 % [facility] EOS 2.0 0.0 - 8.0 % [facility] BASOS 0.6 0.0 - 2.0 % [facility] Granulocytes, immature (%) 0.8 0.0 - 0.9 % [facility] ABSOLUTE NEUTS 5.13 1.80 - 7.70 K/uL [facility] ABSOLUTE LYMPHS 1.42 1.00 - 3.10 K/uL [facility] ABSOLUTE MONOS 0.99(H) 0.20 - 0.80 K/uL [facility] ABSOLUTE EOS 0.16 0.00 - 0.80 K/uL [facility] ABSOLUTE BASOS 0.05 0.00 - 0.09 K/uL [facility] Granulocytes, immature 0.06(H) 0.00 - 0.05 K/uL [facility] Blood 12/26/2019 8:58 AM EDT 12/26/2019 9:02 AM EDT us Marcelino Mayers MD LAB BLOOD BKR ORDERABLES F inal Result [facility] [address] [place] [address] * (ABNORMAL) Lipid panel (12/26/2019 8:58 AM EDT) HDL 40 mg/dL [facility] Comment: Interpretation <40 mg/dL: Low HDL cholesterol (major risk factor for CHD) Greater than or equal to 60 mg/dL: High HDL cholesterol ( negative risk factor for CHD) HDL - cholesterol is affected by a number of factors, e.g. smoking, excerise, hormones, sex and age. CHOLESTEROL 174 0 - 240 mg/dL [facility] TRIGLYCERIDES 181(H) 30 - 160 mg/dL [facility] LDL 98 50 - 129 mg/dL [facility] Comment: LDL levels in terms of risk for coronary heart disease: <100 mg/dL: Optimal 100-129 mg/dL: Near or above optimal 130-159 mg/dL: Borderline high 160-189 mg/dL: High >190 mg/dL: Very High CARDIAC RISK RATIO 4.4 3.4 - 5.0 C [facility] Blood 12/26/2019 8:58 AM EDT 12/26/2019 9:02 AM EDT us Marcelino Mayers MD LAB BLOOD BKR ORDERABLES F inal Result Performing Organization Address City/[facility]/ZIP Co de Phone Number [address] [address] * (ABNORMAL) Hemoglobin A1c (12/26/2019 8:58 AM EDT) HEMOGLOBIN A1C 6.6(H) 4.3 - 5.8 % [facility] Blood 12/26/2019 8:58 AM EDT 12/26/2019 9:02 AM EDT us Marcelino Mayers MD LAB BLOOD BKR ORDERABLES F inal Result [address] [address] * (ABNORMAL) Comprehensive metabolic panel (12/26/2019 8:58 AM EDT) SODIUM 140 133 - 146 mmol/L [facility] POTASSIUM 5.5(H) 3.3 - 5.1 mmol/L [facility] CHLORIDE 106 96 - 108 mmol/L [facility] CO2 24 21 - 35 mmol/L [facility] BUN 31(H) 6 - 19 mg/dL [facility] CREATININE 1.70(H) 0.5 - 1.5 mg/dL [facility] GLUCOSE 149(H) 70 - 99 mg/dL [facility] ALBUMIN 4.1 3.9 - 4.8 g/dL [facility] TOTAL PROTEIN 6.9 6.5 - 8.0 g/dL [facility] CALCIUM 9.2 8.4 - 10.3 mg/dL [facility] ALKALINE PHOSPHATASE 72 39 - 117 U/L [facility] TOTAL BILIRUBIN 0.3 0.0 - 1.2 mg/dL [facility] AST 20 0 - 37 U/L [facility] ALT 15 0 - 40 U/L [facility] GLOBULIN 2.8 1 - 4.8 g/dL [facility] EGFR 39(L) >59 mL/min/1.7 3m2 [facility] Comment:Estimated glomerular filtration rate calculated using the CKD-EPI equation. ANION GAP 16 10 - 20 mmol/L [facility] Blood 12/26/2019 8:58 AM EDT 12/26/2019 9:02 AM EDT Marcelino Mayers MD LAB BLOOD BKR ORDERABLES F inal Result [facility] [address] [place] [address] documented in this encounter Visit Diagnoses Diagnosis Type 2 diabetes mellitus without complication, unspecified whether terminal makeup operator insulin use- Primary documented in this encounter Care Teams Rodding Anode Worker Relationship Specialty Start Date End Date Marcelino Mayers MD [address] [facility] [place] [address] PCP - General Medical Oncology 09/17/18 documented as of this encounter Additional Source Comments The information contained in this document represents components of the legal health record. It is not the complete legal health record.[facility]
--- OUTSIDE RECORDS SUMMARY | 2025-05-13 19:11 | XMS_ITS | Encounter Summary ---
Author Organization [facility] Address [address] [place] [address] Phone Care Team Providers Care Weed Sprayer Name Role Phone Marcelino Mayers MD Primary Care Provider [phone]- [phone] Encounter Details Date Type Department Care Team (Latest Contact Info) Description 12/22/2020 Transcribe Orders [address] [place] [address] Marcelino Mayers MD [address] [place] [address] [place] [address] Type 2 diabetes mellitus without complication, unspecified whether ribbon inker insulin use (Primary Dx); Hyperlipidemia, unspecified hyperlipidemia type; Hypertension, unspecified type; Benign prostatic hyperplasia, unspecified whether lower urinary tract symptoms present Social History Tobacco Use Types Packs/Day Years [...] encounter Results * (ABNORMAL) CBC and differential (12/22/2020 8:41 AM EDT) WBC 7.77 4.00 - 11.00 K/uL [facility] RBC 4.01 3.90 - 5.69 M/uL [facility] HGB 12.1(L) 12.4 - 17.3 g/dL [facility] HCT 38.4 37.0 - 51.0 % [facility] PLT 365 140 - 430 K/uL [facility] MCV 95.8 78.0 - 97.0 fL [facility] MCH 30.2 25.0 - 33.0 pg [facility] MCHC 31.5(L) 32.0 - 36.0 g/dL [facility] RDW 14.6 11.0 - 15.0 % [facility] MPV 11.7 8.4 - 12.8 fl [facility] NRBC 0.00 0 /100 WBCs [facility] ABSOLUTE NRBC 0.00 0 K/uL [facility] DIFF METHOD Auto [facility] NEUTS 67.1 43.0 - 75.0 % [facility] LYMPHS 17.1(L) 18.2 - 47.4 % [facility] MONOS 12.1(H) 4.00 - 11.00 % [facility] EOS 1.9 0.0 - 8.0 % [facility] BASOS 0.6 0.0 - 2.0 % [facility] Granulocytes, immature (%) 1.2(H) 0.0 - 0.9 % [facility] ABSOLUTE NEUTS 5.21 1.80 - 7.70 K/uL [facility] ABSOLUTE LYMPHS 1.33 1.00 - 3.10 K/uL [facility] ABSOLUTE MONOS 0.94(H) 0.20 - 0.80 K/uL [facility] ABSOLUTE EOS 0.15 0.00 - 0.80 K/uL [facility] ABSOLUTE BASOS 0.05 0.00 - 0.09 K/uL [facility] Granulocytes, immature 0.09(H) 0.00 - 0.05 K/uL [facility] Blood 12/22/2020 8:41 AM EDT 12/22/2020 8:46 AM EDT us Marcelino Mayers MD LAB BLOOD BKR ORDERABLES F inal Result [facility] [address] [place] [address] * PSA (screening) (12/22/2020 8:41 AM EDT) PSA 0.99 0 - 4.00 ng/mL [facility] Blood 12/22/2020 8:41 AM EDT 12/22/2020 8:46 AM EDT us Marcelino Mayers MD LAB BLOOD BKR ORDERABLES F inal Result Performing Organization Address City/[facility]/ZIP Co de Phone Number [address] [address] * (ABNORMAL) Lipid panel (12/22/2020 8:41 AM EDT) HDL 42 mg/dL [facility] Comment: Interpretation <40 mg/dL: Low HDL cholesterol (major risk factor for CHD) Greater than or equal to 60 mg/dL: High HDL cholesterol ( negative risk factor for CHD) HDL - cholesterol is affected by a number of factors, e.g. smoking, excerise, hormones, sex and age. CHOLESTEROL 162 0 - 240 mg/dL [facility] TRIGLYCERIDES 167(H) 30 - 160 mg/dL [facility] LDL 87 50 - 129 mg/dL [facility] Comment: LDL levels in terms of risk for coronary heart disease: <100 mg/dL: Optimal 100-129 mg/dL: Near or above optimal 130-159 mg/dL: Borderline high 160-189 mg/dL: High >190 mg/dL: Very High CARDIAC RISK RATIO 3.9 3.4 - 5.0 C [facility] Blood 12/22/2020 8:41 AM EDT 12/22/2020 8:46 AM EDT us Marcelino Mayers MD LAB BLOOD BKR ORDERABLES F inal Result Performing Organization Address City/[facility]/ZIP Co de Phone Number [address] [address] * (ABNORMAL) Hemoglobin A1c (12/22/2020 8:41 AM EDT) HEMOGLOBIN A1C 6.6(H) 4.3 - 5.8 % [facility] Blood 12/22/2020 8:41 AM EDT 12/22/2020 8:46 AM EDT us Marcelino Mayers MD LAB BLOOD BKR ORDERABLES F inal Result [address] [address] * (ABNORMAL) Comprehensive metabolic panel (12/22/2020 8:41 AM EDT) SODIUM 139 133 - 146 mmol/L [facility] POTASSIUM 5.7(H) 3.3 - 5.1 mmol/L [facility] CHLORIDE 105 96 - 108 mmol/L [facility] CO2 23 21 - 35 mmol/L [facility] BUN 34(H) 6 - 19 mg/dL [facility] CREATININE 1.40 0.5 - 1.5 mg/dL [facility] GLUCOSE 169(H) 70 - 99 mg/dL [facility] ALBUMIN 4.0 3.9 - 4.8 g/dL [facility] TOTAL PROTEIN 6.9 6.5 - 8.0 g/dL [facility] CALCIUM 9.6 8.4 - 10.3 mg/dL [facility] ALKALINE PHOSPHATASE 89 39 - 117 U/L [facility] TOTAL BILIRUBIN 0.3 0.0 - 1.2 mg/dL [facility] AST 37 0 - 37 U/L [facility] ALT 15 0 - 40 U/L [facility] GLOBULIN 2.9 1 - 4.8 g/dL [facility] EGFR 49(L) >59 mL/min/1.7 3m2 [facility] Comment:Estimated glomerular filtration rate calculated using the CKD-EPI equation. ANION GAP 17 10 - 20 mmol/L [facility] Blood 12/22/2020 8:41 AM EDT 12/22/2020 8:46 AM EDT us Marcelino Mayers MD LAB BLOOD BKR ORDERABLES F inal Result Performing Organization Address City/[facility]/ZIP Co de Phone Number [address] [address] documented in this encounter Visit Diagnoses Diagnosis Type 2 diabetes mellitus without complication, unspecified whether assisted insulin use- Primary Hyperlipidemia, unspecified hyperlipidemia type Hypertension, unspecified type Benign prostatic hyperplasia, unspecified whether lower urinary tract symptoms present documented in this encounter Care Teams Weed Sprayer Relationship Specialty Start Date End Date Marcelino Mayers MD [address] [place] [address] [place] [address] PCP - General Medical Oncology 09/17/18 documented as of this encounter Additional Source Comments The information contained in this document represents components of the legal health record. It is not the complete legal health record.[facility]
--- OUTSIDE RECORDS SUMMARY | 2025-05-13 19:11 | XMS_ITS | Patient Health Record ---
Author Organization [facility] [place] Address [address] [place] [address] Care Team Providers Care Professor Of Apologetics Name Role Phone Marcelino Mayers MD Primary Care Provider Unavailab Sejal Lipscomb Unavailable [phone] Kota Gonzalez Unavailable [phone] Allergies No Known Allergies Results Component Value Reference Range Notes HEMOGLOBIN A1C (GLYCOHEMOGLO BIN) Reviewed date:04/13/2025 10:21:11 AM Interpretation: Performing Lab: Notes/Report: HEMOGLOBIN A1C % (HH) 6.5 Reason For Referral Diagnosis 1 Type 2 diabetes dayami itus with diabetic polyneuropathy (E11.42) Diagnosis 2 Type 1 diabetes dayami itus with diabetic polyneuropathy (E10.42) Diagnosis 3 Other hammer toe(s) (acquired), left foot (M20.42) Diagnosis 4 Pain in right toe(s) (M79.674) Diagnosis 5 Pain in left toe(s) (M79.675) Diagnosis 6 Pain in right foot ( M79.671) Diagnosis 7 Pain in left foot (M 79.672) Diagnosis 8 Other viral warts (B 07.8) Diagnosis 9 Tinea unguium (B35.1 ) Referring Provider First Name Marcelino Referring Provider Last Name Talib [facility] Referred Provider Sejal Jha Referred Address [address],[place],[address], Referred Provider Specialty Podiatry Referral Priority Routine Medications Medication SIG (Take, Route, Frequency, Duration) Notes Start Date End Date Status Anagrelide HCl 1 MG 1 capsule Orally Twice a day; Duration: 30 day(s) Active Metformin & Diet Manage Prod Two times daily 1030MG Active Pioglitazone HCl 30 MG 1 tablet Orally Once a day; Duration: 30 day(s) Active Clotrimazole-Betameth asone 1-0.05 % 1 application to affected area Externally Twice a day to affected areas on feet; Duration: 30 days 04/13/2025 Active Dorzolamide-Timolol Drops Active Ciclopirox Olamine 0.77 % 1 application to affected area Externally Twice a day to effected areas on feet; Duration: 30 days 04/20/2021 Not-Taking glipiZIDE Active Extra Depth Diabetic Shoes with 3 Pair Custom heat-molded multi-density innersoles for 1 year Dx: 09/29/2020 Not-Taking Brimonidine Tartrate Active glyBURIDE 5 MG 1 tablet with breakfast or the first main meal of the day Orally Once a day; Duration: 30 day(s) Not-Taking Vitamin D3 Active Latanoprost 0.005 % 1 drop into affected eye in the evening Ophthalmic Once a day Not-Taking Rocklatan Active Ciclopirox Olamine 0.77 % 1 application to affected area Externally Twice a day to effected areas on feet; Duration: 30 days Not-Taking Lisinopril 10 MG 1 tablet Orally Once a day; Duration: 30 day(s) Active Simvastatin 80 MG 1 tablet in the evening Orally Once a day; Duration: 30 day(s) Active Tamsulosin HCl 0.4 MG 1 capsule Orally Once a day; Duration: 30 day(s) Active Immunizations Vaccine Route Administration Date Status Comme nts Influenza Unknown 05/10/2020 Administered Influenza Unknown 04/08/2025 Administered COVID-19 Pfizer BioNTech Vaccine Unknown 08/09/2020 Adm inistered #2 08/30/20 Social History Tobacco Use: Social History Observation Description Date Details (start date - stop date) Never Smoker NA - NA Tobacco use other than smoking: Question Answer Notes Are you an other tobacco user? No Tobacco Control (Standard) Question Answer Notes Tobacco use: Nonsmoker Additional Findings: Tobacco non-user Current no nsmoker AUDIT-C (Standard) Question Answer Notes Did you have a drink containing alcohol in the p ast year? No Points 0 Interpretation Negative Problems Problem Type SNOMED Code ICD Code Onset Dates Problem Status W/U Status Risk Notes Problem Acquired hammer toe of left foot (8077946364847640 ) Other hammer toe(s) (acquired), left foot (M20.42) Active confirmed Problem Polyneuropathy due to type 2 diabetes mellitus (790582719) Type 2 diabetes mellitus with diabetic polyneuropathy (E11.42) Active confirmed Problem Polyneuropathy due to diabetes mellitus type I (310805525) Type 1 diabetes mellitus with diabetic polyneuropathy (E10.42) Active confirmed Vital Signs Blood pressure diastolic 74 mm Hg 04/13/2025 Height 6 ft 1 in in 04/13/2025 Blood pressure systolic 120 mm Hg 04/13/2025 Weight 250 lbs 04/13/2025 BMI 32.98 kg/m2 04/13/2025 Procedures Procedure Date Ordered Date Performed Result Body Sit e 03257-ODMSRDF NAIL, 6 OR MORE 10/13/2024 N/A 66767-RELGEAY NAIL, 6 OR MORE 04/13/2025 N/A Encounters Encounter Location Date Provider Diagnosis [facility] [address] 10/13/2024 Sejal Jha Type 2 diabetes mellitus with diabetic polyneuropathy E11.42 and Tinea unguium B35.[address] [address] 04/13/2025 Sejal Jha Tinea pedis of both feet B35.3 ; Type 2 diabetes mellitus with diabetic polyneuropathy E11.42 and Tinea unguium B35.[address] [address] 06/26/2024 Sejal Jha Assessments Encounter Date Diagnosis (ICD Code) Assessment Notes Treatment Notes Treatment Clinical Notes Section Notes 10/13/2024 Type 2 diabetes mellitus with diabetic polyneuropathy (ICD-10 - E11.42) 10/13/2024 Tinea unguium (ICD-10 - B35.1) 04/13/2025 Tinea pedis of both feet (ICD-10 - B35.3) Patient Educated with: ATHELETE .pdf (ATHELETE .pdf) 04/13/2025 Type 2 diabetes mellitus with diabetic polyneuropathy (ICD-10 - E11.42) 04/13/2025 Tinea unguium (ICD-10 - B35.1) Plan Of Treatment Pending Test Test Name Order Date [id number]-JMTKTTA NAIL, 6 OR MORE 10/13/2024 [id number]-UDIDDOK NAIL, 6 OR MORE 04/13/2025 27138-JOHD SKIN LESIONS, OVER 4 09/30/19 21 55223-ZYVM SKIN LESIONS, OVER 4 12/31/19 28580-NOJT SKIN LESIONS, OVER 4 04/20/20 Next Appt Details Provider Name:Sejal Gil apcheco, 10/12/2025 11:00:00 AM, [address] [place], [address], Insurance Providers Payer Name Payer Address Payer Phone Subscriber Number Group Number Insured Name Patient Relationship to Insured Coverage Start Date Coverage End Date [facility] [address] [place] [address] [id number] Tate Eckert Self - patient is the insured Medical (General) History Medical History History ICD Code Cataracts Diabetic Glaucoma High blood pressure Measles Chicken pox Cholesterol Thrombocytosis covid-19 Mumps Surgical History Surgery Date(Month/Year) Tonsil removal
--- OUTSIDE RECORDS SUMMARY | 2025-05-13 19:11 | XMS_ITS | Encounter Summary ---
Author Organization [facility] Address [address] [place] [address] Phone Care Team Providers Care Account Services Specialist Name Role Phone Marcelino Mayers MD Primary Care Provider [phone]- [phone] Encounter Details Date Type Department Care Team (Latest Contact Info) Description 07/11/2021 Transcribe Orders [address] [place] [address] Marcelino Mayers MD [address] [place] [address] [place] [address] Essential hypertension (Primary Dx); Benign prostatic hyperplasia, unspecified whether lower urinary tract symptoms present; Hyperlipidemia, unspecified hyperlipidemia type Social History Tobacco [...] encounter Results * (ABNORMAL) CBC and differential (07/11/2021 8:23 AM EST) WBC 6.68 4.00 - 11.00 K/uL [facility] RBC 3.84(L) 3.90 - 5.69 M/uL [facility] HGB 12.1(L) 12.4 - 17.3 g/dL [facility] HCT 36.7(L) 37.0 - 51.0 % [facility] PLT 348 140 - 430 K/uL [facility] MCV 95.6 78.0 - 97.0 fL [facility] MCH 31.5 25.0 - 33.0 pg [facility] MCHC 33.0 32.0 - 36.0 g/dL [facility] RDW 14.6 11.0 - 15.0 % [facility] MPV 11.3 8.4 - 12.8 fl [facility] NRBC 0.00 0 /100 WBCs [facility] ABSOLUTE NRBC 0.00 0 K/uL [facility] DIFF METHOD Auto [facility] NEUTS 68.9 43.0 - 75.0 % [facility] LYMPHS 10.5(L) 18.2 - 47.4 % [facility] MONOS 18.7(H) 4.00 - 11.00 % [facility] EOS 0.6 0.0 - 8.0 % [facility] BASOS 0.4 0.0 - 2.0 % [facility] Granulocytes, immature (%) 0.9 0.0 - 0.9 % [facility] ABSOLUTE NEUTS 4.60 1.80 - 7.70 K/uL [facility] ABSOLUTE LYMPHS 0.70(L) 1.00 - 3.10 K/uL [facility] ABSOLUTE MONOS 1.25(H) 0.20 - 0.80 K/uL [facility] ABSOLUTE EOS 0.04 0.00 - 0.80 K/uL [facility] ABSOLUTE BASOS 0.03 0.00 - 0.09 K/uL [facility] Granulocytes, immature 0.06(H) 0.00 - 0.05 K/uL [facility] Blood 07/11/2021 8:23 AM EST 07/11/2021 8:26 AM EST us Marcelino Mayers MD LAB BLOOD BKR ORDERABLES F inal Result [facility] [address] [place], [place] [id number] * (ABNORMAL) Lipid panel (07/11/2021 8:23 AM EST) HDL 39 mg/dL [facility] Comment: Interpretation <40 mg/dL: Low HDL cholesterol (major risk factor for CHD) Greater than or equal to 60 mg/dL: High HDL cholesterol ( negative risk factor for CHD) HDL - cholesterol is affected by a number of factors, e.g. smoking, excerise, hormones, sex and age. CHOLESTEROL 161 0 - 240 mg/dL [facility] TRIGLYCERIDES 204(H) 30 - 160 mg/dL [facility] LDL 81 50 - 129 mg/dL [facility] Comment: LDL levels in terms of risk for coronary heart disease: <100 mg/dL: Optimal 100-129 mg/dL: Near or above optimal 130-159 mg/dL: Borderline high 160-189 mg/dL: High >190 mg/dL: Very High CARDIAC RISK RATIO 4.1 3.4 - 5.0 C [facility] Blood 07/11/2021 8:23 AM EST 07/11/2021 8:26 AM EST us Marcelino Mayers MD LAB BLOOD BKR ORDERABLES F inal Result Performing Organization Address City/[facility]/ZIP Co de Phone Number [address] [address] * (ABNORMAL) Hemoglobin A1c (07/11/2021 8:23 AM EST) HEMOGLOBIN A1C 6.5(H) 4.3 - 5.8 % [facility] Blood 07/11/2021 8:23 AM EST 07/11/2021 8:26 AM EST us Marcelino Mayers MD LAB BLOOD BKR ORDERABLES F inal Result Performing Organization Address City/[facility]/ZIP Co de Phone Number [address] [address] * (ABNORMAL) Comprehensive metabolic panel (07/11/2021 8:23 AM EST) SODIUM 137 133 - 146 mmol/L [facility] POTASSIUM 4.7 3.3 - 5.1 mmol/L [facility] CHLORIDE 104 96 - 108 mmol/L [facility] CO2 22 21 - 35 mmol/L [facility] BUN 25(H) 6 - 19 mg/dL [facility] CREATININE 1.60(H) 0.5 - 1.5 mg/dL [facility] GLUCOSE 177(H) 70 - 99 mg/dL [facility] ALBUMIN 4.3 3.9 - 4.8 g/dL [facility] TOTAL PROTEIN 6.9 6.5 - 8.0 g/dL [facility] CALCIUM 9.2 8.4 - 10.3 mg/dL [facility] ALKALINE PHOSPHATASE 81 39 - 117 U/L [facility] TOTAL BILIRUBIN 0.4 0.0 - 1.2 mg/dL [facility] AST 18 0 - 37 U/L [facility] ALT 15 0 - 40 U/L [facility] GLOBULIN 2.6 1 - 4.8 g/dL [facility] EGFR 45(L) >59 mL/min/1.7 3m2 [facility] Comment:Estimated glomerular filtration rate calculated using the CKD-EPI refit equation. ANION GAP 16 10 - 20 mmol/L [facility] Blood 07/11/2021 8:23 AM EST 07/11/2021 8:26 AM EST us Marcelino Mayers MD LAB BLOOD BKR ORDERABLES F inal Result [address] [address] documented in this encounter Visit Diagnoses Diagnosis Essential hypertension- Primary Unspecified essential hypertension Benign prostatic hyperplasia, unspecified whether lower urinary tract symptoms present Hyperlipidemia, unspecified hyperlipidemia type documented in this encounter Care Teams Account Services Specialist Relationship Specialty Start Date End Date Marcelino Mayers MD [address] [place] [address] PCP - General Medical Oncology 09/17/18 documented as of this encounter Additional Source Comments The information contained in this document represents components of the legal health record. It is not the complete legal health record.[facility]
--- OUTSIDE RECORDS SUMMARY | 2025-05-13 19:12 | XMS_ITS | Patient Health Record ---
Author Organization [facility] Address [address] [place] [address] Care Team Providers Care Frame Stylist Name Role Phone Marcelino Mayers MD Primary Care Provider Unavailab Marcelino Chavez Unavailable [phone] Reason For Referral No Information Medications Medication SIG (Take, Route, Frequency, Duration) Notes Start Date End Date Status Anagrelide HCl 1 MG 1 capsule Orally Twi ce a day Active Latanoprost 0.005 % 1 drop into affected eye in the evening Ophthalmic Once a day Active glyBURIDE Active Pioglitazone HCl Act cammie metFORMIN HCl 500 MG 1 tablet with meals Orally Twice a day Active Simvastatin 10 MG 1 tablet in the even ing Orally Once a day Active Timolol Hemihydrate 0.25 % 1 drop into a ffected eye Ophthalmic Once a day Active Lisinopril 20 MG 1 tablet Orally Once a day Active Immunizations Vaccine Route Administration Date Status Comme nts Influenza Unknown 06/20/2018 Administered Problems Problem Type SNOMED Code ICD Code Onset Dates Problem Status W/U Status Risk Notes Problem Screening for malignant neoplasm of colon (174143372) Encounter for screening for malignant neoplasm of colon (Z12.11) Active confirmed Problem History of adenomatous polyp of colon (074055756) History of adenomatous polyp of colon (Z86.010) Active confirmed Problem Long-term current use of drug therapy (311820214) Antiplatelet or antithrombotic long-term use (Z79.02) Active confirmed Problem Pre-procedure evaluation check (304376114) Pre-procedural examination (Z01.818) Active confirmed Plan Of Treatment Pending Test Test Name Order Date CBC w DIFF 06/17/2019 Future Test Test Name Order Date COLONOSCOPY 11/19/2013 COLONOSCOPY 06/17/2019 Insurance Providers Payer Name Payer Address Payer Phone Subscriber Number Group Number Insured Name Patient Relationship to Insured Coverage Start Date Coverage End Date [facility] [address] [facility] [place] [phone] [id number] SALINAS ADAMS Self - patient is the insured Medical (General) History Medical History History ICD Code Tubular adenomas removed in 2001 and 2007; neg. colonoscopy in 04/2014 except for a hyperplastic polyp Diverticulosis Hypertension Hyperlipidemia Denies CA,CVA,Lung disease,renal disease NIDDM HTN Glaucoma Thrombocytosis--on Anagrelide Surgical History Surgery Date(Month/Year) Surgery for a lipoma on the chest wall
--- OUTSIDE RECORDS SUMMARY | 2025-05-13 19:12 | XMS_ITS | Encounter Summary ---
Author Organization [facility] Address [address] [place] [address] Phone Care Team Providers Care [employer] Programmer Name Role Phone Marcelino Mayers MD Primary Care Provider [phone]- [phone] Encounter Details Date Type Department Care Team (Latest Contact Info) Description 03/31/2021 Transcribe Orders [address] [place] [address] Marcelino Mayers MD [address] [place] [address] [place] [address] Essential hypertension (Primary Dx); Hyperlipidemia, unspecified hyperlipidemia type; Stage 3 chronic kidney disease, unspecified whether stage 3a or 3b CKD Social History Tobacco Use Types Packs/Day Years [...] encounter Results * (ABNORMAL) CBC and differential (03/31/2021 8:30 AM EDT) WBC 7.81 4.00 - 11.00 K/uL [facility] RBC 3.93 3.90 - 5.69 M/uL [facility] HGB 11.9(L) 12.4 - 17.3 g/dL [facility] HCT 38.0 37.0 - 51.0 % [facility] PLT 378 140 - 430 K/uL [facility] MCV 96.7 78.0 - 97.0 fL [facility] MCH 30.3 25.0 - 33.0 pg [facility] MCHC 31.3(L) 32.0 - 36.0 g/dL [facility] RDW 14.3 11.0 - 15.0 % [facility] MPV 11.2 8.4 - 12.8 fl [facility] NRBC 0.00 0 /100 WBCs [facility] ABSOLUTE NRBC 0.00 0 K/uL [facility] DIFF METHOD Auto [facility] NEUTS 66.3 43.0 - 75.0 % [facility] LYMPHS 19.5 18.2 - 47.4 % [facility] MONOS 10.9 4.00 - 11.00 % [facility] EOS 1.9 0.0 - 8.0 % [facility] BASOS 0.5 0.0 - 2.0 % [facility] Granulocytes, immature (%) 0.9 0.0 - 0.9 % [facility] ABSOLUTE NEUTS 5.18 1.80 - 7.70 K/uL [facility] ABSOLUTE LYMPHS 1.52 1.00 - 3.10 K/uL [facility] ABSOLUTE MONOS 0.85(H) 0.20 - 0.80 K/uL [facility] ABSOLUTE EOS 0.15 0.00 - 0.80 K/uL [facility] ABSOLUTE BASOS 0.04 0.00 - 0.09 K/uL [facility] Granulocytes, immature 0.07(H) 0.00 - 0.05 K/uL [facility] Blood 03/31/2021 8:30 AM EDT 03/31/2021 8:33 AM EDT us Marcelino Mayers MD LAB BLOOD BKR ORDERABLES F inal Result [address] [address] * (ABNORMAL) Lipid panel (03/31/2021 8:30 AM EDT) HDL 43 mg/dL [facility] Comment: Interpretation <40 mg/dL: Low HDL cholesterol (major risk factor for CHD) Greater than or equal to 60 mg/dL: High HDL cholesterol ( negative risk factor for CHD) HDL - cholesterol is affected by a number of factors, e.g. smoking, excerise, hormones, sex and age. CHOLESTEROL 171 0 - 240 mg/dL [facility] TRIGLYCERIDES 215(H) 30 - 160 mg/dL [facility] LDL 85 50 - 129 mg/dL [facility] Comment: LDL levels in terms of risk for coronary heart disease: <100 mg/dL: Optimal 100-129 mg/dL: Near or above optimal 130-159 mg/dL: Borderline high 160-189 mg/dL: High >190 mg/dL: Very High CARDIAC RISK RATIO 4.0 3.4 - 5.0 [facility] Blood 03/31/2021 8:30 AM EDT 03/31/2021 8:33 AM EDT us Marcelino Mayers MD LAB BLOOD BKR ORDERABLES F inal Result [address] [address] * (ABNORMAL) Comprehensive metabolic panel (03/31/2021 8:30 AM EDT) SODIUM 140 133 - 146 mmol/L [facility] POTASSIUM 5.3(H) 3.3 - 5.1 mmol/L [facility] CHLORIDE 106 96 - 108 mmol/L [facility] CO2 24 21 - 35 mmol/L [facility] BUN 32(H) 6 - 19 mg/dL [facility] CREATININE 1.40 0.5 - 1.5 mg/dL [facility] GLUCOSE 180(H) 70 - 99 mg/dL [facility] ALBUMIN 4.4 3.9 - 4.8 g/dL [facility] TOTAL PROTEIN 7.1 6.5 - 8.0 g/dL [facility] CALCIUM 9.6 8.4 - 10.3 mg/dL [facility] ALKALINE PHOSPHATASE 83 39 - 117 U/L [facility] TOTAL BILIRUBIN 0.2 0.0 - 1.2 mg/dL [facility] AST 17 0 - 37 U/L [facility] ALT 13 0 - 40 U/L [facility] GLOBULIN 2.7 1 - 4.8 g/dL [facility] EGFR 49(L) >59 mL/min/1.7 3m2 [facility] Comment:Estimated glomerular filtration rate calculated using the CKD-EPI equation. ANION GAP 15 10 - 20 mmol/L [facility] Blood 03/31/2021 8:30 AM EDT 03/31/2021 8:33 AM EDT us Marcelino Mayers MD LAB BLOOD BKR ORDERABLES F inal Result [address] [address] documented in this encounter Visit Diagnoses Diagnosis Essential hypertension- Primary Unspecified essential hypertension Hyperlipidemia, unspecified hyperlipidemia type Stage 3 chronic kidney disease, unspecified whether stage 3a or 3b CKD documented in this encounter Care Teams [employer] Programmer Relationship Specialty Start Date End Date Marcelino Mayers MD [address] [place] [address] [place] [address] PCP - General Medical Oncology 09/17/18 documented as of this encounter Additional Source Comments The information contained in this document represents components of the legal health record. It is not the complete legal health record.[facility]
--- OUTSIDE RECORDS SUMMARY | 2025-05-13 19:13 | XMS_ITS | Clinical Summary ---
Author Organization [facility] Address [address] [facility] [place] [phone] Phone Care Team Providers Care Delivery Associate Name Role Phone Marcelino Mayers MD Primary Care Provider [phone]- [phone] Allergies No known active allergies Medications simvastatin (ZOCOR) 40 MG tablet Take 40 mg by mouth nightly at bedtime. Active lisinopril (PRINIVIL,ZESTR IL) 40 MG tablet Take 40 mg by mouth daily. Active metFORMIN (GLUCOPHAGE) 1000 MG tablet Take 1,000 mg by mouth 2 (two) times a day with meals. Active tamsulosin (FLOMAX) 0.4 mg Cap Take 0.4 mg by mouth daily. Active glyBURIDE (DIABETA) 5 MG tablet Take 5 mg by mouth daily with breakfast. Active pioglitazone (ACTOS) 30 MG tablet Take 30 mg by mouth daily. Active glipiZIDE (GLUCOTROL) 10 MG tablet Take 10 mg by mouth 2 (two) times a day before meals. Active anagrelide (AGRYLIN) 1 mg capsule Take 1 mg by mouth 4 (four) times a day. Active dorzolamide (TRUSOPT) 2 % ophthalmic solution Place 1 drop into each eye 3 (three) times a day. Active brimonidine-anne olol (COMBIGAN) 0.2-0.5 % ophthalmic solution Place 1 drop into each eye 2 (two) times a day. Active cholecalciferol (VITAMIN D3) 2,000 unit capsule Take by mouth daily. Active Active Problems Problem Noted Date Diagnosed Date Primary osteoarthritis of both knees 07/22/2024 Encounters Date Type Department Care Team Description 04/10/2025 8:27 AM EDT - 04/10/2025 11:59 PM EDT Hospital Encounter [facility] [address] [place] [address] [place] [address] Jitendra Shaver MD Discharge Disposition: Home or Self Care 04/10/2025 8:25 AM EDT - 04/10/2025 8:26 AM EDT Hospital Encounter [facility] [address] [place] [address] [place] [address] Marcelino Mayers MD Discharge Disposition: Home or Self Care 03/25/2025 7:49 AM EDT - 03/25/2025 11:59 PM EDT Hospital Encounter [facility] [address] [place] [address] [place] [address] Marcelino Mayers MD Discharge Disposition: Home or Self Care 03/25/2025 Transcribe Orders [facility] [address] [place] [address] Marcelino Mayers MD Hyperlipidemia, unspecified hyperlipidemia type (Primary Dx); Type 2 diabetes mellitus without complication, unspecified whether correction insulin use from Last 3 Months Social History Tobacco Use Types Packs/Day Years Used Date Smoking Tobacco: Never Assessed Education Answer Date Recorded Are you interested in more education? Not on alanna e 11/03/2022 Are you concerned about learning? Not on file 11/03/2022 No 11/03/2022 No 11/03/2022 Digital Access Answer Date Recorded No 12/04/2022 No 12/04/2022 Reliable internet access at home? Not on file 12/04/2022 Device with a working camera? Not on file Sex and Gender Information Value Date Recorded Sex Assigned at Not on file Legal Sex Male 10:07 PM EDT Gender Identity Not on file Sexual Orientation Not on file Last Filed Vital Signs Vital Sign Reading Time Taken Comments Blood Pressure 158/77 09/17/2018 5:15 AM EDT Pulse 68 09/17/2018 5:15 AM EDT Temperature 36.5 C (97.7 F) 09/17/2018 3:48 AM EDT Respiratory Rate 18 09/17/2018 5:15 AM EDT Oxygen Saturation 100% 09/17/2018 5:15 AM EDT Inhaled Oxygen Concentration - - Weight 118.3 kg (260 lb 12.8 oz) 07/22/2024 1:29 PM EST Height 187.5 cm (6' 1.82 ) 07/22/2024 1:29 PM ES T Body Mass Index 33.65 07/22/2024 1:29 PM EST Plan of Treatment Health Maintenance Due Date Last Done Comments BLOOD PRESSURE 1946 DEPRESSION SCREENING 1958 SMOKING Hx and SMOKELESS TOBACCO SCREENING 1959 HEPATITIS C SCREENING 1964 DIABETIC EYE EXAM 02/25/2019 INFLUENZA VACCINE (#1) 2025 , 05/02/2023, 05/08/2022, Additional history exists COVID-19 VACCINE ( season) 2025 03/14/2024, 03/14/2024, 04/23/2023, Additional history exists HEMOGLOBIN A1C 10/09/2025 04/10/2025, 12/07, 08/27/2024, Additional history exists CREATININE LEVEL 03/25/2026 03/25/2025, , 08/27/2024, Additional history exists POTASSIUM LEVEL 03/25/2026 03/25/2025, 12/07, 08/27/2024, Additional history exists Adult Td,Tdap Booster 03/09/2028 03/09/2018 PNEUMOCOCCAL VACCINES (50+ years) Completed 11/16/2022 RSV VACCINE Completed 06/05/2023 ZOSTER VACCINES Completed 08/01/2023, 03/14/2023 HEPATITIS A VACCINES Aged Out No long er eligible based on patient's age to complete this topic HIB VACCINES Aged Out No longer eligi ble based on patient's age to complete this topic MENINGOCOCCAL VACCINES (ACWY) Aged Out No longer eligible based on patient's age to complete this topic MENINGOCOCCAL VACCINES (B) Aged Out N o longer eligible based on patient's age to complete this topic Medical Devices Not on file Procedures Procedure Name Priority Date/Time Associated Diagnosis Comments URINE SEDIMENT Routine 04/10/2025 8:50 AM EDT URINALYSIS Routine 04/10/2025 8:50 AM EDT Stage 3b chronic kidney disease TOTAL PROTEIN CREATININE RATIO, RANDOM URINE Routine 04/10/2025 8:50 AM EDT Stage 3b chronic kidney disease 25-OH VITAMIN D Routine 04/10/2025 8:38 AM EDT PSA (SCREENING) Routine 04/10/2025 8:38 AM EDT Type 2 diabetes mellitus without complication, without long-term current use of insulin Benign prostatic hyperplasia with lower urinary tract symptoms, symptom details unspecified HEMOGLOBIN A1C Routine 04/10/2025 8:38 AM EDT Type 2 diabetes mellitus without complication, without long-term current use of insulin Benign prostatic hyperplasia with lower urinary tract symptoms, symptom details unspecified MONOCLONAL PROTEIN STUDY, SERUM Routine 04/10/2025 8:38 AM EDT Stage 3b chronic kidney disease IGA KAPPA/LAMBDA Routine 04/10/2025 8:38 AM EDT Stage 3b chronic kidney disease PARATHYROID HORMONE (PTH) Routine 04/10/2025 8:38 AM EDT Stage 3b chronic kidney disease MAGNESIUM Routine 04/10/2025 8:38 AM EDT Stage 3b chronic kidney disease PHOSPHORUS Routine 04/10/2025 8:38 AM EDT Stage 3b chronic kidney disease IRON AND IRON BINDING CAPACITY Routine 04/10/2025 8:38 AM EDT Stage 3b chronic kidney disease FERRITIN Routine 04/10/2025 8:38 AM EDT Stage 3b chronic kidney disease URIC ACID Routine 04/10/2025 8:38 AM EDT Stage 3b chronic kidney disease COMPREHENSIVE METABOLIC PANEL (CMP) Routine 03/25/2025 7:52 AM EDT Hyperlipidemia, unspecified hyperlipidemia type Type 2 diabetes mellitus without complication, unspecified whether correction insulin use CBC AND DIFFERENTIAL Routine 03/25/2025 7:52 AM EDT Hyperlipidemia, unspecified hyperlipidemia type Type 2 diabetes mellitus without complication, unspecified whether correction insulin use LIPID PANEL Routine 03/25/2025 7:52 AM EDT Hyperlipidemia, unspecified hyperlipidemia type Type 2 diabetes mellitus without complication, unspecified whether correction insulin use from Last 3 Months Results * (ABNORMAL) TOTAL PROTEIN CREATININE RATIO, RANDOM URINE (04/10/2025 8:50 AM EDT) URINE TOTAL PROTEIN 42.0 mg/dL [facility] URINE CREATININE 61 mg/dL [facility] URINE TP CRE RATIO 0.69(H) 0 - 0.19 [facility] Urine (Urine) 04/10/2025 8:5 0 AM EDT 04/10/2025 8:57 AM EDT Jitendra Shaver MD LAB URINE ORDERABLES Final Result Performing Organization Address City/[facility]/ZIP Co de Phone Number [address] [address] * (ABNORMAL) Urine sediment (04/10/2025 8:50 AM EDT) WBC 0-4(A) NONE SEEN /hpf [facility] RBC NONE SEEN NONE SEEN /hpf [facility] URINE EPITHELIAL 0-4(A) NONE SEEN [facility] MUCUS NONE SEEN NONE SEEN /hpf [facility] BACTERIA NONE SEEN NONE SEEN /hpf [facility] 04/10/2025 8:50 AM EDT 04/10/2025 8:57 AM EDT us Jitendra Shaver MD LAB URINE ORDERABLES Final Result Performing Organization Address City/[facility]/ZIP Co de Phone Number [address] [address] * (ABNORMAL) Urinalysis (04/10/2025 8:50 AM EDT) COLOR Yellow Yellow [facility] CLARITY Clear [facility] GLUCOSE Negative Negative [facility] BILI Negative Negative [facility] KETONES Negative Negative [facility] SPECIFIC GRAVITY 1.015 1.005 - 1.030 [facility] BLOOD Negative Negative [facility] PH 7.0 5.0 - 8.0 [facility] Protein-UA 1+(A) Negative [facility] NITRITE Negative Negative [facility] Leukocyte esterase, ur Negative Negative [facility] Urine (Urine) 04/10/2025 8:5 0 AM EDT 04/10/2025 8:57 AM EDT Jitendra Shaver MD LAB URINE ORDERABLES Final Result [facility] [address] [place] [address] * (ABNORMAL) Monoclonal protein study, serum (04/10/2025 8:38 AM EDT) M-protein GK Test component not applicable or not reported. g/dL [facility] M-protein GL Test component not applicable or not reported. g/dL [facility]PATH [address] M-protein AK Test component not applicable or not reported. g/dL [facility]/PATH [place] [address] M-protein AL Test component not applicable or not reported. g/dL [facility]/PATH [address] M-protein MK Test component not applicable or not reported. g/dL [facility]PATH [address] M-protein ML Test component not applicable or not reported. g/dL [facility]PATH [address] Glycosylation Test component not applicable or not reported. [facility] Flag, M-protein Isotype Negative Negative [facility] MED/PATH [place] QMPTS Interpretation No monoclonal protein detected. [facility] Comment: (NOTE) ADDITIONAL INFORMATION The submitted sample was assayed by five separate immunopurifications for IgG, IgA, IgM, kappa and lambda. The result reflects the findings of either no monoclonal protein detected or those monoclonal immunoglobulins that were detected. This test was developed and its performance characteristics determined by [facility] in a manner consistent with CLIA requirements. This test has not been cleared or approved by the U.S. Food and Drug Administration. IgA 199 61 - 356 mg/dL [facility] IgM 63 37 - 286 mg/dL [facility] IgG 715(L) 767 - 1,590 mg/dL [facility] Therapeutic Antibody Administered? Unknown [facility] [address] Comment:Corrected on 04/14 A T 1246: previously reported as unknown Blood 04/10/2025 8:38 AM EDT 04/10/2025 8:46 AM EDT Jitendra Shaver MD LAB BLOOD BKR ORDERAB LES Edited Result - Final [facility]/[address] [place] [address] * IgA kappa/lambda (Hevylite IgA) (04/10/2025 8:38 AM EDT) IgA 207 69 - 309 mg/dL [facility] IgA (kappa) 109 59 - 298 mg/dL [facility] IGA (LAMBDA) 96 43 - 204 mg/dL [facility] IgA (kappa/lambda) 1.14 0.95 - 2.21 [facility] Blood 04/10/2025 8:38 AM EDT 04/10/2025 8:47 AM EDT Jitendra Shaver MD LAB BLOOD ORDERABLES Final Result [address] [address] * Iron and iron binding capacity (04/10/2025 8:38 AM EDT) IRON 95 45 - 160 ug/dL [facility] IRON BINDING CAPACITY 314 228 - 428 ug/dL [facility] TRANSFERRIN SATURAT. 30 20 - 55 % [facility] Blood 04/10/2025 8:38 AM EDT 04/10/2025 8:47 AM EDT us Jitendra Sahver MD LAB BLOOD BKR ORDERAB LES Final Result [address] [address] * 25-OH vitamin D (04/10/2025 8:38 AM EDT) Pathologist [facility] 25 OH VIT D (TOTAL) 45 30 - 60 ng/mL [facility] 04/10/2025 8:38 AM EDT 04/10/2025 8:47 AM EDT us Jitendra Shaver MD LAB BLOOD BKR ORDERAB LES Final Result Performing Organization Address City/[facility]/ZIP Co de Phone Number [address] [address] * (ABNORMAL) Uric acid (04/10/2025 8:38 AM EDT) Pathologist [facility] URIC ACID 8.2(H) 2.4 - 7.0 mg/dL [facility] Blood 04/10/2025 8:38 AM EDT 04/10/2025 8:47 AM EDT us Jitendra Shaver MD LAB BLOOD BKR ORDERAB LES Final Result Performing Organization Address City/[facility]/ZIP Co de Phone Number [address] [address] * PSA (screening) (04/10/2025 8:38 AM EDT) PSA 0.97 0 - 4.00 ng/mL [facility] Comment: Test Methodology Vinod [id number] Patient results determined by assays using different manufacturers or methods may not be comparable. Blood 04/10/2025 8:38 AM EDT 04/10/2025 8:47 AM EDT us Jitendra Shaver MD LAB BLOOD BKR ORDERAB LES Final Result [address] [address] * Phosphorus (04/10/2025 8:38 AM EDT) PHOSPHORUS 3.2 2.7 - 4.5 mg/dL [facility] Blood 04/10/2025 8:38 AM EDT 04/10/2025 8:47 AM EDT us Jitendra Shaver MD LAB BLOOD BKR ORDERAB LES Final Result Performing Organization Address City/[facility]/ZIP Co de Phone Number [address] [address] * Parathyroid hormone (PTH) (04/10/2025 8:38 AM EDT) PARATHYROID HORMONE 42 15 - 65 pg/mL [facility] Blood 04/10/2025 8:38 AM EDT 04/10/2025 8:47 AM EDT us Jitendra Shaver MD LAB BLOOD BKR ORDERAB LES Final Result Performing Organization Address City/[facility]/ZIP Co de Phone Number [address] [address] * Magnesium (04/10/2025 8:38 AM EDT) MAGNESIUM 2.0 1.6 - 2.6 mg/dL [facility] Blood 04/10/2025 8:38 AM EDT 04/10/2025 8:47 AM EDT us Jitendra Shaver MD LAB BLOOD BKR ORDERAB LES Final Result Performing Organization Address City/[facility]/ZIP Co de Phone Number [address] [address] * (ABNORMAL) Hemoglobin A1c (04/10/2025 8:38 AM EDT) HEMOGLOBIN A1C 6.1(H) 4.3 - 5.8 % [facility] Blood 04/10/2025 8:38 AM EDT 04/10/2025 8:47 AM EDT us Jitendra Shaver MD LAB BLOOD BKR ORDERAB LES Final Result Performing Organization Address City/[facility]/ZIP Co de Phone Number [address] [address] * Ferritin (04/10/2025 8:38 AM EDT) FERRITIN 91 30 - 400 ug/L [facility] Blood 04/10/2025 8:38 AM EDT 04/10/2025 8:47 AM EDT us Jitendra Shaver MD LAB BLOOD BKR ORDERAB LES Final Result Performing Organization Address City/[facility]/ZIP Co de Phone Number [address] [address] * (ABNORMAL) Comprehensive metabolic panel (03/25/2025 7:52 AM EDT) SODIUM 140 133 - 146 mmol/L [facility] POTASSIUM 5.4(H) 3.3 - 5.1 mmol/L [facility] CHLORIDE 108 96 - 108 mmol/L [facility] CO2 22 21 - 35 mmol/L [facility] BUN 34(H) 6 - 19 mg/dL [facility] CREATININE 1.50 0.5 - 1.5 mg/dL [facility] GLUCOSE 117(H) 70 - 99 mg/dL [facility] ALBUMIN 3.9 3.9 - 4.8 g/dL [facility] TOTAL PROTEIN 6.7 6.5 - 8.0 g/dL [facility] CALCIUM 9.4 8.4 - 10.3 mg/dL [facility] ALKALINE PHOSPHATASE 77 39 - 117 U/L [facility] TOTAL BILIRUBIN 0.3 0.0 - 1.2 mg/dL [facility] AST 17 0 - 37 U/L [facility] ALT 9 0 - 40 U/L [facility] GLOBULIN 2.8 1 - 4.8 g/dL [facility] EGFR 47(L) >59 mL/min/1.7 3m2 [facility] Comment:Estimated glomerular filtration rate calculated using the CKD-EPI refit equation. ANION GAP 15 10 - 20 mmol/L [facility] Blood 03/25/2025 7:52 AM EDT 03/25/2025 7:55 AM EDT us Marcelino Mayers MD LAB BLOOD BKR ORDERABLES F inal Result [facility] [address] [place] [address] * (ABNORMAL) CBC and differential (03/25/2025 7:52 AM EDT) WBC 7.15 4.00 - 11.00 K/uL [facility] RBC 3.65(L) 4.50 - 5.90 M/uL [facility] HGB 11.1(L) 13.5 - 17.5 g/dL [facility] HCT 36.7(L) 41.0 - 53.0 % [facility] PLT 292 150 - 450 K/uL [facility] MCV 100.5(H) 80.0 - 100.0 fL [facility] MCH 30.4 27.0 - 31.0 pg [facility] MCHC 30.2(L) 32.0 - 36.0 g/dL [facility] RDW 14.6(H) 11.5 - 14.5 % [facility] MPV 11.9 8.4 - 12.0 fL [facility] NRBC 0.00 0.00 /100 WBCs [facility] ABSOLUTE NRBC 0.00 0.00 K/uL [facility] DIFF METHOD Auto [facility] NEUTS 65.5 48.0 - 76.0 % [facility] LYMPHS 17.3(L) 18.0 - 41.0 % [facility] MONOS 14.1(H) 4.0 - 11.0 % [facility] EOS 1.8 0.0 - 5.0 % [facility] BASOS 0.6 0.0 - 1.5 % [facility] Granulocytes, immature (%) 0.7 0.0 - 0.9 % [facility] ABSOLUTE NEUTS 4.68 1.92 - 7.60 K/uL [facility] ABSOLUTE LYMPHS 1.24 0.72 - 4.10 K/uL [facility] ABSOLUTE MONOS 1.01 0.16 - 1.10 K/uL [facility] ABSOLUTE EOS 0.13 0.00 - 0.50 K/uL [facility] ABSOLUTE BASOS 0.04 0.00 - 0.15 K/uL [facility] Granulocytes, immature 0.05 0.00 - 0.09 K/uL [facility] Blood 03/25/2025 7:52 AM EDT 03/25/2025 7:55 AM EDT us Marcelino Mayers MD LAB BLOOD BKR ORDERABLES F inal Result Performing Organization Address City/State/[facility] Co de Phone Number [address] [address] * Lipid panel (03/25/2025 7:52 AM EDT) HDL 45 mg/dL [facility] Comment: Interpretation <40 mg/dL: Low HDL cholesterol (major risk factor for CHD) Greater than or equal to 60 mg/dL: High HDL cholesterol ( negative risk factor for CHD) HDL - cholesterol is affected by a number of factors, e.g. smoking, excerise, hormones, sex and age. CHOLESTEROL 154 0 - 240 mg/dL [facility] TRIGLYCERIDES 155 30 - 160 mg/dL [facility] LDL 78 50 - 129 mg/dL [facility] Comment: LDL levels in terms of risk for coronary heart disease: <100 mg/dL: Optimal 100-129 mg/dL: Near or above optimal 130-159 mg/dL: Borderline high 160-189 mg/dL: High >190 mg/dL: Very High CARDIAC RISK RATIO 3.4 3.4 - 5.0 [facility] Blood 03/25/2025 7:52 AM EDT 03/25/2025 7:54 AM EDT us Marcelino Mayers MD LAB BLOOD BKR ORDERABLES F inal Result [address] [address] from Last 3 Months Insurance [place] BLUE REPLACEMENT [facility] MEDICARE HMO BLUE RE[place]AC[place] BL[place] RE[place] [facility] MEDICARE O BL[place] Care Teams Delivery Associate Relationship Specialty Start Date End Date Marcelino Mayers MD [address] [place] [address] [place] [address] PCP - General Medical Oncology 09/17/18 Additional Source Comments The information contained in this document represents components of the legal health record. It is not the complete legal health record.[facility]
== END 2025-05-13 17:00 | disposition home or self-care (01) ==
LOC: HO.10HDLNP 16:59
PROVIDERS: Visit Provider Internal Medicine Medical Oncology
DX: E11.621 Type 2 diabetes mellitus with foot ulcer (principal); L97.521 Non-pressure chronic ulcer of other part of left foot limited to breakdown of skin
CPT/HCPCS: 87070; 87077; 87147; 87186; 87205

== ENCOUNTER 2025-05-22 15:15 | Outpatient (RCR) | payer MEDICARE, SELFPAY | END 2025-05-22 16:11 | disposition home or self-care (01) | LOC: HO.WCC 15:15 | PROVIDERS: PCP Internal Medicine Medical Oncology; Visit Provider Surgery Vascular Surgery | DX: E11.621 Type 2 diabetes mellitus with foot ulcer (principal); L97.522 Non-pressure chronic ulcer of other part of left foot with fat layer exposed; E11.620 Type 2 diabetes mellitus with diabetic dermatitis; I10 Essential (primary) hypertension; B35.3 Tinea pedis; Z79.84 Long term (current) use of oral hypoglycemic drugs | CPT/HCPCS: 87070; 87073; 87147; 87205; 99204; 99212 ==